=== PATIENT | female | born 1955 | race American Indian/Alaskan Native ===

== ENCOUNTER 2018-03-27 02:31 | Inpatient (IN) | payer MEDICARE ==
[2018-03-27] MEDS ORDERED: DUONEB *Not for PRN Use IH ONE (02:58)
[2018-03-27] MEDS ORDERED: TYLENOL PO ONE ×2 (02:59→04:35)
[2018-03-27] MEDS ORDERED: TYLENOL ONE (03:03)
[2018-03-27] MEDS ORDERED: PROVENTIL IH ONE ×3 (03:16→03:21)
[2018-03-27] MEDS ORDERED: MAGNESIUM SULFATE 2GM/50ML 2 GM/50 ML BAG IV ONE (03:21)
[2018-03-27] MEDS ORDERED: SOLU-Medrol IV ONE (03:21)
[2018-03-27 03:24] LABS: Basophils % (Auto) 0.4 % (0.0-1.8); Eosinophils # (Auto) 0.2 K/mm3 (0.0-0.4); Eosinophils % (Auto) 1.9 % (0.0-4.3); Hematocrit 38.3 % (30.3-42.9); Hemoglobin 12.8 gm/dl (10.1-14.3); Lymphocytes # (Auto) 0.8 K/mm3 (1.2-5.4); Lymphocytes % (Auto) 6.9 % (13.4-35.0); Mean Corpuscular HGB Conc 33 % (30-34); Mean Corpuscular Hemoglobin 27 pg (28-32); Mean Corpuscular Volume 80 fl (79-97); Monocytes # (Auto) 0.8 K/mm3 (0.0-0.8); Monocytes % (Auto) 6.9 % (0.0-7.3); Platelet Count 233 K/mm3 (140-440); Red Blood Count 4.77 M/mm3 (3.65-5.03); Red Cell Distribution Width 15.3 % (13.2-15.2)
[2018-03-27 03:34] LABS: BUN/Creatinine Ratio 11; Blood Urea Nitrogen 10 mg/dL (7-17); Calcium 8.9 mg/dL (8.4-10.2); Hemolysis Index 3
--- NOTE | 2018-03-27 04:17 | XRay Report ---
FINAL REPORT EXAM: XR CHEST 1V AP HISTORY: cough TECHNIQUE: A portable upright view of the chest was submitted. FINDINGS: There are sternotomy sutures. The heart size is normal. The lungs are not congested. There are no infiltrates or effusions. The bones and soft tissues do not show any acute changes. IMPRESSION: No acute cardiopulmonary process.
--- NOTE | 2018-03-27 04:32 | Emergency Department Report ---
ED Shortness of Breath HPI - General Chief Complaint: Adult Asthma Stated Complaint: ASTHMA Time Seen by Provider: 03/27/18 03:17 Source: patient Mode of arrival: Ambulatory Limitations: No Limitations - History of Present Illness Initial Comments: 63-year-old female with history of asthma presents to ER with complaints of shortness of breath. Patient states symptoms started within the last day. Patient reports cough, denies fever, denies chest pain. Denies swelling in legs. States she has been using nebulizer machine at home without improvement. MD Complaint: shortness of breath -: Gradual, days(s) (1) Severity: severe Consistency: constant Improves With: nothing Worsens With: exertion Known History Of: asthma Associated Symptoms: cough - Related Data Home Medications Medication Instructions Recorded Confirmed Last Taken Triamter/Hctz 37.5-25 mg 1 tab PO QDAY 07/09/13 05/04/15 08/08/13 [Maxzide-25] Dexlansoprazole [Dexilant] 60 mg PO DAILY 05/04/15 05/04/15 Unknown Loratadine [Claritin] 10 mg PO DAILY 05/04/15 05/04/15 Unknown Mometasone/Formoterol [Dulera 100 2 puff INHALATION BID 05/04/15 05/04/15 Unknown Mcg/5 Mcg Inhaler] NexIUM 24Hr 1 each PO DAILY 05/04/15 05/04/15 Unknown Tiotropium [Spiriva] 1 cap PO QHS 05/04/15 05/04/15 Unknown Previous Rx's Medication Instructions Recorded Last Taken Type ALBUTEROL Inhaler (OR & NICU) 1 puff IH QID PRN #1 inha 07/16/13 Unknown Rx [ProAir HFA Inhaler] Albuterol Sulfate [Albuterol 0.63% 0.63 mg IH TID PRN #1 box 07/16/13 08/08/13 Rx NEBS] Ipratropium [Atrovent NEB] 0.5 mg IH Q6HRT PRN #1 box 07/16/13 08/08/13 Rx Prednisone [predniSONE 10 mg 10 mg PO .TAPER #1 tab.ds.pk 05/06/15 Unknown Rx (6-Day Pack, 21 Tabs)] guaiFENesin DM [Robitussin Dm] 10 ml PO TID 14 Days oral.liqd 05/06/15 Unknown Rx levoFLOXacin [Levaquin TAB] 500 mg PO QDAY #7 tablet 05/06/15 Unknown Rx Allergies Allergy/AdvReac Type Severity Reaction Status Date / Time carisoprodol [From Soma] Allergy Rash Verified 06/12/13 13:40 Penicillins Allergy Rash Verified 06/12/13 13:40 ED Review of Systems ROS: Stated complaint: ASTHMA Other details as noted in HPI Comment: All other systems reviewed and negative Constitutional: denies: chills, fever Respiratory: cough, shortness of breath, wheezing Cardiovascular: denies: chest pain Gastrointestinal: denies: nausea, vomiting ED Past Medical Hx - Past Medical History Hx Hypertension: Yes Hx Congestive Heart Failure: No Hx Diabetes: No Hx Arthritis: Yes Hx Asthma: Yes Hx COPD: No - Surgical History Hx Breast Surgery: Yes (reduction) Additional Surgical History: Hysterectomy - Social History Smoking Status: Never Smoker Substance Use Type: None - Medications Home Medications: Home Medications Medication Instructions Recorded Confirmed Last Taken Type Triamter/Hctz 37.5-25 mg 1 tab PO QDAY 07/09/13 05/04/15 08/08/13 History [Maxzide-25] ALBUTEROL Inhaler (OR & NICU) 1 puff IH QID PRN #1 inha 07/16/13 05/04/15 Unknown Rx [ProAir HFA Inhaler] Albuterol Sulfate [Albuterol 0.63% 0.63 mg IH TID PRN #1 box 07/16/13 05/04/15 08/08/13 Rx NEBS] Ipratropium [Atrovent NEB] 0.5 mg IH Q6HRT PRN #1 box 07/16/13 05/04/15 Rx Dexlansoprazole [Dexilant] 60 mg PO DAILY 05/04/15 05/04/15 Unknown History Loratadine [Claritin] 10 mg PO DAILY 05/04/15 05/04/15 Unknown History Mometasone/Formoterol [Dulera 100 2 puff INHALATION BID 05/04/15 05/04/15 Unknown History Mcg/5 Mcg Inhaler] NexIUM 24Hr 1 each PO DAILY 05/04/15 05/04/15 Unknown History Tiotropium [Spiriva] 1 cap PO QHS 05/04/15 05/04/15 Unknown History Prednisone [predniSONE 10 mg 10 mg PO .TAPER #1 tab.ds.pk 05/06/15 Unknown Rx (6-Day Pack, 21 Tabs)] guaiFENesin DM [Robitussin Dm] 10 ml PO TID 14 Days oral.liqd 05/06/15 Unknown Rx levoFLOXacin [Levaquin TAB] 500 mg PO QDAY #7 tablet 05/06/15 Unknown Rx ED Physical Exam - General Limitations: No Limitations General appearance: alert, obese - Head Head exam: Present: atraumatic, normocephalic - Eye Eye exam: Present: normal appearance - ENT ENT exam: Present: mucous membranes moist - Neck Neck exam: Present: normal inspection - Respiratory Respiratory exam: Present: respiratory distress, wheezes, other (tachypnea) - Cardiovascular Cardiovascular Exam: Present: normal rhythm, tachycardia - GI/Abdominal GI/Abdominal exam: Present: soft. Absent: tenderness - Extremities Exam Extremities exam: Absent: tenderness, pedal edema - Neurological Exam Neurological exam: Present: alert, oriented X3 - Psychiatric Psychiatric exam: Present: normal affect, normal mood - Skin Skin exam: Present: warm, dry, intact, normal color ED Course Vital Signs 03/27/18 03/27/18 03/27/18 02:44 03:21 03:28 Temperature 100.9 F H Pulse Rate 109 H 106 H Pulse Rate [ 124 H Bilateral Throughout] Respiratory 28 H 32 H Rate Respiratory 15 Rate [Bilateral Throughout] Blood Pressure 152/90 O2 Sat by Pulse 100 98 Oximetry 03/27/18 03/27/18 03/27/18 03:31 03:45 04:00 Temperature 98.4 F Pulse Rate 121 H 124 H Pulse Rate [ Bilateral Throughout] Respiratory 40 H 47 H Rate Respiratory Rate [Bilateral Throughout] Blood Pressure 130/70 O2 Sat by Pulse 97 96 Oximetry 03/27/18 03/27/18 03/27/18 04:01 04:15 04:17 Temperature Pulse Rate 131 H 121 H Pulse Rate [ 124 H Bilateral Throughout] Respiratory 38 H 45 H 22 Rate Respiratory 37 H Rate [Bilateral Throughout] Blood Pressure 130/70 142/58 O2 Sat by Pulse 97 97 Oximetry 03/27/18 03/27/18 04:21 05:59 Temperature Pulse Rate 124 H 112 H Pulse Rate [ Bilateral Throughout] Respiratory 37 H 31 H Rate Respiratory Rate [Bilateral Throughout] Blood Pressure 142/58 138/59 O2 Sat by Pulse 99 97 Oximetry - Reevaluation(s) Reevaluation #1: 03/27/18 04:00 Pt remains tachycardic and tachypneic, w/ RR of 40. Pt still has wheezing present. Will place on Bipap. ED Medical Decision Making - Lab Data Result diagrams: 03/27/18 03:04 03/27/18 03:04 - EKG Data -: EKG Interpreted by Me EKG shows normal: ST-T waves Rate: tachycardia - EKG Data When compared to previous EKG there are: changes noted, other (as compared to last EKG from 2013, pt has RBBB) Interpretation: other (RBBB, LAFB, abnormal EKG) - Radiology Data Radiology results: report reviewed, image reviewed - Medical Decision Making 63-year-old female with severe respiratory distress secondary to asthma exacerbation. Patient initially given an treatment, mag sulfate, Solu-Medrol. Patient remained very tachypneic depsite those medications. Decision was made to plade pt on BiPAP. Pt now feeling much better, less anxious, respirations improved. CXR negative. Troponin negative. Will admit to hospitalist. Patient later reported chest tightness also with sharp pain and pleuritic component. Spoke with hospitalist Dr. Hannah, said to add CTA chest to workup. Hospitalist to follow up on results. - Differential Diagnosis ACS, asthma, pulm edema, PE Critical Care Time: Yes Critical care time in (mins) excluding proc time.: 35 Critical care attestation.: If time is entered above; I have spent that time in minutes in the direct care of this critically ill patient, excluding procedure time. Critical Care Time: 35 minutes. ED Disposition Clinical Impression: Status asthmaticus, Respiratory failure Disposition: [id number] OP ADMIT IP TO THIS HOSP Is pt being admited?: Yes Condition: Critical Referrals: OLGA CASTILLO JR, MD [Primary Care Provider] - 3-5 Days
[2018-03-27] MEDS ORDERED: SODIUM CHLORIDE FLUSH SYRINGE 10 ML IV PRN (06:08)
[2018-03-27] MEDS ORDERED: ZOFRAN IV PRN (06:08)
--- NOTE | 2018-03-27 06:17 | History and Physical Report ---
History of Present Illness Date of examination: 03/27/18 History of present illness: 63-year-old woman with a history of hypertension, asthma comes to consider emergency room with complaints of shortness of breath not relieved with her nebulizer treatments. Also complaining of a cough productive of white phlegm, fever. She complaints of chest pain in the epigastric area which she describes as sharp pain, intermittent after 1 minute, intensity 4/10, no radiation, cannot identify exacerbating or relieving factors. Admits to palpitation, no diaphoresis, nausea vomiting Review of systems Constitutional: no weight loss, chills, fever Ears, eyes, nose, mouth and throat: no nasal congestion, no nasal discharge, no sinus pressure, no vision change, no red eye. Neck: No neck pain or rigidity. Cardiovascular: + chest pain, palpitations Respiratory:+ cough, shortness of breath Gastrointestinal: no abdominal pain hematochezia Genitourinary : no frequency , no hematuria Musculoskeletal: no joint swelling or muscle ache Integumentary: no rash, no pruritis Neurological: no parathesias, no numbness, no focal weakness Endocrine: no cold or heat intolerance, no polyuria or polydipsia Hematologic/Lymphatic: no easy bruising, no easy bleeding, no gland swelling Allergic/Immunologic: no urticaria, no angioedema. PAST MEDICAL HISTORY: hypertension, asthma PAST SURGICAL HISTORY: Breast reduction, hysterectomy SOCIAL HISTORY: No alcohol, no drugs, tobacco FAMILY HISTORY: Hypertension Medications and Allergies Allergies Allergy/AdvReac Type Severity Reaction Status Date / Time carisoprodol [From Soma] Allergy Rash Verified 06/12/13 13:40 Penicillins Allergy Rash Verified 06/12/13 13:40 Home Medications Medication Instructions Recorded Confirmed Last Taken Type Triamter/Hctz 37.5-25 mg 1 tab PO QDAY 07/09/13 05/04/15 08/08/13 History [Maxzide-25] ALBUTEROL Inhaler (OR & NICU) 1 puff IH QID PRN #1 inha 07/16/13 05/04/15 Unknown Rx [ProAir HFA Inhaler] Albuterol Sulfate [Albuterol 0.63% 0.63 mg IH TID PRN #1 box 07/16/13 05/04/15 08/08/13 Rx NEBS] Ipratropium [Atrovent NEB] 0.5 mg IH Q6HRT PRN #1 box 07/16/13 05/04/15 Rx Dexlansoprazole [Dexilant] 60 mg PO DAILY 05/04/15 05/04/15 Unknown History Loratadine [Claritin] 10 mg PO DAILY 05/04/15 05/04/15 Unknown History Mometasone/Formoterol [Dulera 100 2 puff INHALATION BID 05/04/15 05/04/15 Unknown History Mcg/5 Mcg Inhaler] NexIUM 24Hr 1 each PO DAILY 05/04/15 05/04/15 Unknown History Tiotropium [Spiriva] 1 cap PO QHS 05/04/15 05/04/15 Unknown History Prednisone [predniSONE 10 mg 10 mg PO .TAPER #1 tab.ds.pk 05/06/15 Unknown Rx (6-Day Pack, 21 Tabs)] guaiFENesin DM [Robitussin Dm] 10 ml PO TID 14 Days oral.liqd 05/06/15 Unknown Rx levoFLOXacin [Levaquin TAB] 500 mg PO QDAY #7 tablet 05/06/15 Unknown Rx Exam - Physical Exam Narrative exam: Gen. appearance: Patient lying in bed, no apparent distress HEENT: Normocephalic, atraumatic, pupils equally round and reactive to light, extraocular movement intact, and no sclericterus,. No JVD or thyromegaly or nodule,neck supple, no carotid bruit ,mucous membranes moist, no exudate or erythema Heart: S1, S2, regular rate and rhythm Lungs: Recent bilaterally, breathing comfortable Abdomen: Positive bowel sounds, non-tender, nondistended, no organomegaly Extremity:no edema cyanosis, clubbing Skin: no rash, dry, warm Neuro: Oriented 3, cranial nerves II-12 intact, speech is fluent, motor and sensory intact - Constitutional Vitals: Temp Pulse Resp BP Pulse Ox 98.4 F 112 H 31 H 138/59 97 03/27/18 04:00 03/27/18 05:59 03/27/18 05:59 03/27/18 05:59 03/27/18 05:59 Results - Labs CBC & Chem 7: 03/27/18 03:04 03/27/18 03:04 Labs: Abnormal lab results 03/27/18 03/27/18 Range/Units 03:04 03:04 WBC 12.1 H (4.5-11.0) K/mm3 MCH 27 L (28-32) pg RDW 15.3 H (13.2-15.2) % Lymph % (Auto) 6.9 L (13.4-35.0) % Lymph # 0.8 L (1.2-5.4) K/mm3 Seg Neutrophils % 83.9 H (40.0-70.0) % Seg Neutrophils # 10.1 H (1.8-7.7) K/mm3 Glucose 157 H (65-100) mg/dL - Imaging and Cardiology EKG: image reviewed Chest x-ray: image reviewed Assessment and Plan Assessment Acute respiratory failure Asthma exacerbation Chest pain Plan Admit to medicine Continue BiPAP Start high-dose steroids, nebulization treatment, IV Levaquin Check cardiac enzymes, CT chest is pending DVT prophylaxis
[2018-03-27] MEDS: LEVAQUIN 500MG/100ML 500 MG/100 ML BAG IV SCH (06:54)
[2018-03-27 07:23] LABS: Creatine Kinase MB 1.1 ng/mL (0.0-4.0)
--- NOTE | 2018-03-27 07:41 | Cat Scan Report ---
FINAL REPORT EXAM: CT ANGIO CHEST HISTORY: chest pain TECHNIQUE: A CT angiogram was obtained following the intravenous injection of 100 cc of Omnipaque 350. Rotational, sagittal, and coronal MIP reconstructions were reviewed. Comparison is made to the study 08/09/2013. FINDINGS: There is no evidence of pulmonary embolus or aortic dissection. The heart size is normal. The thoracic aorta is normal in caliber. The lungs are not congested. There minimal dependent atelectasis in both lung bases. Pleural fluid is not seen. There is a small hiatal hernia. In the upper abdomen the adrenal glands appear normal. At the thoracic inlet there is been interval resection of the left thyroid mass since the previous study. The right thyroid lobe appears normal. Skeletal structures do not show any acute changes. IMPRESSION: No evidence of pulmonary embolus, vascular congestion, or aortic dissection. Minimal dependent atelectasis in both lower lobes. Interval surgical mobile of the left thyroid mass since the previous study.
[2018-03-27] MEDS ORDERED: SOLU-Medrol IV SCH (10:00)
[2018-03-27] MEDS ORDERED: LOVENOX SUB-Q SCH (10:00)
[2018-03-27] MEDS: DUONEB *Not for PRN Use IH SCH ×3 (11:05→20:16)
[2018-03-27] MEDS: LOVENOX SUB-Q SCH (12:13)
[2018-03-27] MEDS: SODIUM CHLORIDE FLUSH SYRINGE 10 ML IV SCH ×2 (12:14→21:46)
[2018-03-27 12:48] LABS: Creatine Kinase MB 1.6 ng/mL (0.0-4.0)
--- NOTE | 2018-03-27 12:48 | Progress Note ---
Assessment and Plan Assessment and plan: Sepsis. Patient meets criteria given the fever, leukocytosis and diagnosis of acute bronchitis. Continue IV antibiotics and follow-up blood, sputum cultures and lactate levels. Acute bronchitis. Continue IV antibiotics. Acute hypoxemic respiratory failure. Continue O2 support care. BiPAP as needed. Acute asthma exacerbation. Continue IV steroids, nebulizer treatments and IV Levaquin. History Interval history: No new issues overnight. Hospitalist Physical - Constitutional Vitals: Temp Pulse Resp BP Pulse Ox 97.8 F 96 H 20 133/68 95 03/27/18 08:57 03/27/18 11:20 03/27/18 11:20 03/27/18 08:57 03/27/18 08:57 General appearance: Present: no acute distress, well-nourished - EENT Eyes: Present: PERRL, EOM intact ENT: hearing intact, clear oral mucosa, dentition normal - Neck Neck: Present: supple, normal ROM - Respiratory Respiratory effort: normal Respiratory: bilateral: CTA - Cardiovascular Rhythm: regular Heart Sounds: Present: S1 & S2. Absent: gallop, rub - Extremities Extremities: no ischemia, No edema, Full ROM - Abdominal General gastrointestinal: soft, non-tender, non-distended, normal bowel sounds - Integumentary Integumentary: Present: clear, warm, dry - Neurologic Neurologic: CNII-XII intact, moves all extremities Results - Labs CBC & Chem 7: 03/27/18 03:04 03/27/18 03:04 Labs: Laboratory Last Values WBC 12.1 K/mm3 (4.5-11.0) H 03/27/18 03:04 RBC 4.77 M/mm3 (3.65-5.03) 03/27/18 03:04 Hgb 12.8 gm/dl (10.1-14.3) 03/27/18 03:04 Hct 38.3 % (30.3-42.9) 03/27/18 03:04 MCV 80 fl (79-97) 03/27/18 03:04 MCH 27 pg (28-32) L 03/27/18 03:04 MCHC 33 % (30-34) 03/27/18 03:04 RDW 15.3 % (13.2-15.2) H 03/27/18 03:04 Plt Count 233 K/mm3 (140-440) 03/27/18 03:04 Lymph % (Auto) 6.9 % (13.4-35.0) L 03/27/18 03:04 [place] % (Auto) 6.9 % (0.0-7.3) 03/27/18 03:04 Eos % (Auto) 1.9 % (0.0-4.3) 03/27/18 03:04 Baso % (Auto) 0.4 % (0.0-1.8) 03/27/18 03:04 Lymph # 0.8 K/mm3 (1.2-5.4) L 03/27/18 03:04 [place] # 0.8 K/mm3 (0.0-0.8) 03/27/18 03:04 Eos # 0.2 K/mm3 (0.0-0.4) 03/27/18 03:04 Baso # 0.0 K/mm3 (0.0-0.1) 03/27/18 03:04 Seg Neutrophils % 83.9 % (40.0-70.0) H 03/27/18 03:04 Seg Neutrophils # 10.1 K/mm3 (1.8-7.7) H 03/27/18 03:04 POC ABG pH 7.403 (7.35-7.45) 03/27/18 06:14 POC ABG pCO2 38.9 (35-45) 03/27/18 06:14 POC ABG pO2 84 (80-105) 03/27/18 06:14 POC ABG HCO3 24.3 03/27/18 06:14 POC ABG Total CO2 25 03/27/18 06:14 POC ABG O2 Sat 96 03/27/18 06:14 POC ABG Base Excess 0 03/27/18 06:14 FiO2 30 % 03/27/18 06:14 Sodium 140 mmol/L (137-145) 03/27/18 03:04 Potassium 4.1 mmol/L (3.6-5.0) 03/27/18 03:04 Chloride 100.5 mmol/L (98-107) 03/27/18 03:04 Carbon Dioxide 26 mmol/L (22-30) 03/27/18 03:04 Anion Gap 18 mmol/L 03/27/18 03:04 BUN 10 mg/dL (7-17) 03/27/18 03:04 Creatinine 0.9 mg/dL (0.7-1.2) 03/27/18 03:04 Estimated GFR > 60 ml/min 03/27/18 03:04 BUN/Creatinine Ratio 11 % 03/27/18 03:04 Glucose 157 mg/dL (65-100) H 03/27/18 03:04 Calcium 8.9 mg/dL (8.4-10.2) 03/27/18 03:04 Total Creatine Kinase 72 units/L (30-135) 03/27/18 06:45 CK-MB (CK-2) 1.1 ng/mL (0.0-4.0) 03/27/18 06:45 CK-MB (CK-2) Rel Index 1.5 (0-4) 03/27/18 06:45 Troponin T < 0.010 ng/mL (0.00-0.029) 03/27/18 06:45 NT-Pro-B Natriuret Pep 97.77 pg/mL (0-900) 03/27/18 03:04
[2018-03-27] MEDS: NAPROSYN PO SCH ×2 (16:40→21:44)
[2018-03-27] MEDS: SOLU-Medrol IV SCH ×2 (17:14→21:45)
[2018-03-27] MEDS: PROTONIX PO SCH (21:45)
[2018-03-28] MEDS: DUONEB *Not for PRN Use IH SCH ×4 (01:59→21:46)
[2018-03-28 05:40] LABS: Hematocrit 37.9 % (30.3-42.9); Hemoglobin 12.2 gm/dl (10.1-14.3); Mean Corpuscular HGB Conc 32 % (30-34); Mean Corpuscular Hemoglobin 26 pg (28-32); Mean Corpuscular Volume 81 fl (79-97); Platelet Count 242 K/mm3 (140-440); Red Blood Count 4.66 M/mm3 (3.65-5.03); Red Cell Distribution Width 15.2 % (13.2-15.2)
[2018-03-28 05:57] LABS: BUN/Creatinine Ratio 13; Blood Urea Nitrogen 13 mg/dL (7-17); Hemolysis Index 21
[2018-03-28 06:56] LABS: Band Neutrophils # (Manual) 0.2 K/mm3; Basophils % (Manual) 0 % (0.0-1.8); Eosinophils % (Manual) 0 % (0.0-4.3); Monocytes % (Manual) 0 % (0.0-7.3); RBC Morphology Normal; Total Cells Counted 100
[2018-03-28] MEDS: TYLENOL PO PRN ×2 (07:02→12:40)
[2018-03-28] MEDS: SOLU-Medrol IV SCH ×3 (07:03→22:55)
[2018-03-28] MEDS: SODIUM CHLORIDE FLUSH SYRINGE 10 ML IV SCH ×2 (10:00→22:55)
--- NOTE | 2018-03-28 10:26 | Progress Note ---
Assessment and Plan Assessment and plan: Sepsis. Patient meets criteria given the fever, leukocytosis and diagnosis of acute bronchitis. Continue IV antibiotics and follow-up blood, sputum cultures and lactate levels. Acute bronchitis. Continue IV antibiotics. Acute hypoxemic respiratory failure. Continue O2 support care. BiPAP as needed. Acute asthma exacerbation. Continue IV steroids and taper as tolerated, nebulizer treatments and IV Levaquin. History Interval history: No new issues overnight. Hospitalist Physical - Constitutional Vitals: Temp Pulse Resp BP Pulse Ox 98.4 F 81 20 128/76 96 03/28/18 08:42 03/28/18 08:42 03/28/18 08:42 03/28/18 08:42 03/28/18 08:42 General appearance: Present: no acute distress, well-nourished - EENT Eyes: Present: PERRL, EOM intact ENT: hearing intact, clear oral mucosa, dentition normal - Neck Neck: Present: supple, normal ROM - Respiratory Respiratory effort: normal Respiratory: bilateral: diminished, wheezing - Cardiovascular Rhythm: regular Heart Sounds: Present: S1 & S2. Absent: gallop, rub - Extremities Extremities: no ischemia, No edema, Full ROM - Abdominal General gastrointestinal: soft, non-tender, non-distended, normal bowel sounds - Integumentary Integumentary: Present: clear, warm, dry - Neurologic Neurologic: CNII-XII intact, moves all extremities Results - Labs CBC & Chem 7: 03/28/18 05:04 03/28/18 05:04 Labs: Laboratory Last Values WBC 19.0 K/mm3 (4.5-11.0) H 03/28/18 05:04 RBC 4.66 M/mm3 (3.65-5.03) 03/28/18 05:04 Hgb 12.2 gm/dl (10.1-14.3) 03/28/18 05:04 Hct 37.9 % (30.3-42.9) 03/28/18 05:04 MCV 81 fl (79-97) 03/28/18 05:04 MCH 26 pg (28-32) L 03/28/18 05:04 MCHC 32 % (30-34) 03/28/18 05:04 RDW 15.2 % (13.2-15.2) 03/28/18 05:04 Plt Count 242 K/mm3 (140-440) 03/28/18 05:04 Lymph % (Auto) 6.9 % (13.4-35.0) L 03/27/18 03:04 [place] % (Auto) 6.9 % (0.0-7.3) 03/27/18 03:04 Eos % (Auto) 1.9 % (0.0-4.3) 03/27/18 03:04 Baso % (Auto) 0.4 % (0.0-1.8) 03/27/18 03:04 Lymph # 0.8 K/mm3 (1.2-5.4) L 03/27/18 03:04 [place] # 0.8 K/mm3 (0.0-0.8) 03/27/18 03:04 Eos # 0.2 K/mm3 (0.0-0.4) 03/27/18 03:04 Baso # 0.0 K/mm3 (0.0-0.1) 03/27/18 03:04 Add Manual Diff Complete 03/28/18 05:04 Total Counted 100 03/28/18 05:04 Seg Neutrophils % [facility] 03/28/18 05:04 Seg Neuts % (Manual) 96.0 % (40.0-70.0) H 03/28/18 05:04 Band Neutrophils % 1.0 % 03/28/18 05:04 Lymphocytes % (Manual) 2.0 % (13.4-35.0) L 03/28/18 05:04 Reactive Lymphs % (Man) 0 % 03/28/18 05:04 Monocytes % (Manual) 0 % (0.0-7.3) 03/28/18 05:04 Eosinophils % (Manual) 0 % (0.0-4.3) 03/28/18 05:04 Basophils % (Manual) 0 % (0.0-1.8) 03/28/18 05:04 Metamyelocytes % 1.0 % 03/28/18 05:04 Myelocytes % 0 % 03/28/18 05:04 Promyelocytes % 0 % 03/28/18 05:04 Blast Cells % 0 % 03/28/18 05:04 Nucleated RBC % Not Reportable 03/28/18 05:04 Seg Neutrophils # 10.1 K/mm3 (1.8-7.7) H 03/27/18 03:04 Seg Neutrophils # Man 18.2 K/mm3 (1.8-7.7) H 03/28/18 05:04 Band Neutrophils # 0.2 K/mm3 03/28/18 05:04 Lymphocytes # (Manual) 0.4 K/mm3 (1.2-5.4) L 03/28/18 05:04 Abs React Lymphs (Man) 0.0 K/mm3 03/28/18 05:04 Monocytes # (Manual) 0.0 K/mm3 (0.0-0.8) 03/28/18 05:04 Eosinophils # (Manual) 0.0 K/mm3 (0.0-0.4) 03/28/18 05:04 Basophils # (Manual) 0.0 K/mm3 (0.0-0.1) 03/28/18 05:04 Metamyelocytes # 0.2 K/mm3 03/28/18 05:04 Myelocytes # 0.0 K/mm3 03/28/18 05:04 Promyelocytes # 0.0 K/mm3 03/28/18 05:04 Blast Cells # 0.0 K/mm3 03/28/18 05:04 WBC Morphology Not Reportable 03/28/18 05:04 Hypersegmented Neuts Not Reportable 03/28/18 05:04 Hyposegmented Neuts Not Reportable 03/28/18 05:04 Hypogranular Neuts Not Reportable 03/28/18 05:04 Smudge Cells Not Reportable 03/28/18 05:04 Toxic Granulation Not Reportable 03/28/18 05:04 Toxic Vacuolation Not Reportable 03/28/18 05:04 Dohle Bodies Not Reportable 03/28/18 05:04 Pelger-Huet Anomaly Not Reportable 03/28/18 05:04 Toni Rods Not Reportable 03/28/18 05:04 Platelet Estimate Appears normal 03/28/18 05:04 Clumped Platelets Not Reportable 03/28/18 05:04 Plt Clumps, EDTA Not Reportable 03/28/18 05:04 Large Platelets Not Reportable 03/28/18 05:04 Giant Platelets Not Reportable 03/28/18 05:04 Platelet Satelliting Not Reportable 03/28/18 05:04 Plt Morphology Comment Not Reportable 03/28/18 05:04 RBC Morphology Normal 03/28/18 05:04 Dimorphic RBCs Not Reportable 03/28/18 05:04 Polychromasia Not Reportable 03/28/18 05:04 Hypochromasia Not Reportable 03/28/18 05:04 Poikilocytosis Not Reportable 03/28/18 05:04 Anisocytosis Not Reportable 03/28/18 05:04 Microcytosis Not Reportable 03/28/18 05:04 Macrocytosis Not Reportable 03/28/18 05:04 Spherocytes Not Reportable 03/28/18 05:04 Pappenheimer Bodies Not Reportable 03/28/18 05:04 Sickle Cells Not Reportable 03/28/18 05:04 Target Cells Not Reportable 03/28/18 05:04 Tear Drop Cells Not Reportable 03/28/18 05:04 Ovalocytes Not Reportable 03/28/18 05:04 Helmet Cells Not Reportable 03/28/18 05:04 [place] Bodies Not Reportable 03/28/18 05:04 [place] Rings Not Reportable 03/28/18 05:04 [place] Cells Not Reportable 03/28/18 05:04 Bite Cells Not Reportable 03/28/18 05:04 Crenated Cell Not Reportable 03/28/18 05:04 Elliptocytes Not Reportable 03/28/18 05:04 Acanthocytes (Spur) Not Reportable 03/28/18 05:04 Rouleaux Not Reportable 03/28/18 05:04 Hemoglobin C Crystals Not Reportable 03/28/18 05:04 Schistocytes Not Reportable 03/28/18 05:04 Malaria parasites Not Reportable 03/28/18 05:04 [place]hsan Bodies Not Reportable 03/28/18 05:04 Hem Pathologist Commnt No 03/28/18 05:04 POC ABG pH 7.403 (7.35-7.45) 03/27/18 06:14 POC ABG pCO2 38.9 (35-45) 03/27/18 06:14 POC ABG pO2 84 (80-105) 03/27/18 06:14 POC ABG HCO3 24.3 03/27/18 06:14 POC ABG Total CO2 25 03/27/18 06:14 POC ABG O2 Sat 96 03/27/18 06:14 POC ABG Base Excess 0 03/27/18 06:14 FiO2 30 % 03/27/18 06:14 Sodium 142 mmol/L (137-145) 03/28/18 05:04 Potassium 4.5 mmol/L (3.6-5.0) 03/28/18 05:04 Chloride 104.7 mmol/L (98-107) 03/28/18 05:04 Carbon Dioxide 25 mmol/L (22-30) 03/28/18 05:04 Anion Gap 17 mmol/L 03/28/18 05:04 BUN 13 mg/dL (7-17) 03/28/18 05:04 Creatinine 1.0 mg/dL (0.7-1.2) 03/28/18 05:04 Estimated GFR > 60 ml/min 03/28/18 05:04 BUN/Creatinine Ratio 13 % 03/28/18 05:04 Glucose 245 mg/dL (65-100) H 03/28/18 05:04 Calcium 9.0 mg/dL (8.4-10.2) 03/28/18 05:04 Total Creatine Kinase 63 units/L (30-135) 03/27/18 12:20 CK-MB (CK-2) 1.6 ng/mL (0.0-4.0) 03/27/18 12:20 CK-MB (CK-2) Rel Index 2.5 (0-4) 03/27/18 12:20 Troponin T < 0.010 ng/mL (0.00-0.029) 03/27/18 12:20 NT-Pro-B Natriuret Pep 97.77 pg/mL (0-900) 03/27/18 03:04
[2018-03-28] MEDS: LOVENOX SUB-Q SCH (10:39)
[2018-03-28] MEDS: PROTONIX PO SCH (10:39)
[2018-03-28] MEDS: NAPROSYN PO SCH ×2 (10:39→23:05)
[2018-03-28] MEDS: LEVAQUIN 500MG/100ML 500 MG/100 ML BAG IV SCH (10:40)
[2018-03-28] MEDS: COZAAR PO SCH (23:37)
[2018-03-28] MEDS: TESSALON PERLES PO PRN (23:38)
[2018-03-29] MEDS: DUONEB *Not for PRN Use IH SCH ×4 (02:24→19:42)
[2018-03-29] MEDS: SOLU-Medrol IV SCH ×3 (05:50→21:17)
[2018-03-29 06:30] LABS: Hematocrit 35.4 % (30.3-42.9); Hemoglobin 11.5 gm/dl (10.1-14.3); Mean Corpuscular HGB Conc 33 % (30-34); Mean Corpuscular Hemoglobin 26 pg (28-32); Mean Corpuscular Volume 81 fl (79-97); Platelet Count 247 K/mm3 (140-440); Red Cell Distribution Width 15.3 % (13.2-15.2)
[2018-03-29 06:50] LABS: BUN/Creatinine Ratio 19; Blood Urea Nitrogen 21 mg/dL (7-17); Calcium 8.5 mg/dL (8.4-10.2); Hemolysis Index 2
[2018-03-29] MEDS: MAXZIDE-25 PO SCH (09:10)
[2018-03-29] MEDS: COZAAR PO SCH (09:10)
[2018-03-29] MEDS: TYLENOL PO PRN ×2 (09:11→21:17)
[2018-03-29] MEDS: NAPROSYN PO SCH ×2 (09:11→21:16)
[2018-03-29] MEDS: LOVENOX SUB-Q SCH (09:12)
[2018-03-29] MEDS: PROTONIX PO SCH (09:12)
[2018-03-29] MEDS: TESSALON PERLES PO PRN (09:12)
[2018-03-29] MEDS: LEVAQUIN 500MG/100ML 500 MG/100 ML BAG IV SCH (09:13)
[2018-03-29] MEDS: SODIUM CHLORIDE FLUSH SYRINGE 10 ML IV SCH ×2 (10:00→21:16)
[2018-03-29 10:32] LABS: Total Cells Counted 100
[2018-03-29 10:34] LABS: Anisocytosis 1+; Basophils % (Manual) 0 % (0.0-1.8); Eosinophils % (Manual) 0 % (0.0-4.3)
[2018-03-29 10:35] LABS: Poikilocytosis 1+; Schistocytes Rare
[2018-03-29] MEDS ORDERED: SODIUM CHLORIDE FLUSH SYRINGE 10 ML IV PRN (11:51)
--- NOTE | 2018-03-29 11:51 | Progress Note ---
Assessment and Plan Assessment and plan: Chest pain. Patient will be placed on the chest pain protocol. We will follow up lexiscan and echocardiogram. Consider cardiology consultation. Sepsis. Improved. Continue IV antibiotics and follow-up blood, sputum cultures and lactate levels. Acute bronchitis. Continue IV antibiotics. Persistent Leukocytosis. Etiology likely secondary to steroids. Acute hypoxemic respiratory failure. Continue O2 support care. BiPAP as needed. Acute asthma exacerbation. Continue IV steroids and taper as tolerated, nebulizer treatments and IV Levaquin. History Interval history: No new issues overnight. Patient complains of chest pain that began this morning. Patient describes the pain as a tightness in the midsternal region. Hospitalist Physical - Constitutional Vitals: Temp Pulse Resp BP Pulse Ox 97.9 F 71 18 131/76 97 03/29/18 08:11 03/29/18 10:09 03/29/18 10:09 03/29/18 08:11 03/29/18 10:00 General appearance: Present: no acute distress, well-nourished - EENT Eyes: Present: PERRL, EOM intact ENT: hearing intact, clear oral mucosa, dentition normal - Neck Neck: Present: supple, normal ROM - Respiratory Respiratory effort: normal Respiratory: bilateral: diminished, rhonchi - Cardiovascular Rhythm: regular Heart Sounds: Present: S1 & S2. Absent: gallop, rub - Extremities Extremities: no ischemia, No edema, Full ROM - Abdominal General gastrointestinal: soft, non-tender, non-distended, normal bowel sounds - Integumentary Integumentary: Present: clear, warm, dry - Neurologic Neurologic: CNII-XII intact, moves all extremities Results - Labs CBC & Chem 7: 03/29/18 05:58 03/29/18 05:58 Labs: Laboratory Last Values WBC 19.3 K/mm3 (4.5-11.0) H 03/29/18 05:58 RBC 4.40 M/mm3 (3.65-5.03) 03/29/18 05:58 Hgb 11.5 gm/dl (10.1-14.3) 03/29/18 05:58 Hct 35.4 % (30.3-42.9) 03/29/18 05:58 MCV 81 fl (79-97) 03/29/18 05:58 MCH 26 pg (28-32) L 03/29/18 05:58 MCHC 33 % (30-34) 03/29/18 05:58 RDW 15.3 % (13.2-15.2) H 03/29/18 05:58 Plt Count 247 K/mm3 (140-440) 03/29/18 05:58 Lymph % (Auto) 6.9 % (13.4-35.0) L 03/27/18 03:04 [place] % (Auto) 6.9 % (0.0-7.3) 03/27/18 03:04 Eos % (Auto) 1.9 % (0.0-4.3) 03/27/18 03:04 Baso % (Auto) 0.4 % (0.0-1.8) 03/27/18 03:04 Lymph # 0.8 K/mm3 (1.2-5.4) L 03/27/18 03:04 [place] # 0.8 K/mm3 (0.0-0.8) 03/27/18 03:04 Eos # 0.2 K/mm3 (0.0-0.4) 03/27/18 03:04 Baso # 0.0 K/mm3 (0.0-0.1) 03/27/18 03:04 Add Manual Diff Complete 03/29/18 05:58 Total Counted 100 03/29/18 05:58 Seg Neutrophils % Child Psychologist 03/29/18 05:58 Seg Neuts % (Manual) 98.0 % (40.0-70.0) H 03/29/18 05:58 Band Neutrophils % 0 % 03/29/18 05:58 Lymphocytes % (Manual) 1.0 % (13.4-35.0) L 03/29/18 05:58 Reactive Lymphs % (Man) 0 % 03/29/18 05:58 Monocytes % (Manual) 1.0 % (0.0-7.3) 03/29/18 05:58 Eosinophils % (Manual) 0 % (0.0-4.3) 03/29/18 05:58 Basophils % (Manual) 0 % (0.0-1.8) 03/29/18 05:58 Metamyelocytes % 0 % 03/29/18 05:58 Myelocytes % 0 % 03/29/18 05:58 Promyelocytes % 0 % 03/29/18 05:58 Blast Cells % 0 % 03/29/18 05:58 Nucleated RBC % Not Reportable 03/29/18 05:58 Seg Neutrophils # 10.1 K/mm3 (1.8-7.7) H 03/27/18 03:04 Seg Neutrophils # Man 18.9 K/mm3 (1.8-7.7) H 03/29/18 05:58 Band Neutrophils # 0.0 K/mm3 03/29/18 05:58 Lymphocytes # (Manual) 0.2 K/mm3 (1.2-5.4) L 03/29/18 05:58 Abs React Lymphs (Man) 0.0 K/mm3 03/29/18 05:58 Monocytes # (Manual) 0.2 K/mm3 (0.0-0.8) 03/29/18 05:58 Eosinophils # (Manual) 0.0 K/mm3 (0.0-0.4) 03/29/18 05:58 Basophils # (Manual) 0.0 K/mm3 (0.0-0.1) 03/29/18 05:58 Metamyelocytes # 0.0 K/mm3 03/29/18 05:58 Myelocytes # 0.0 K/mm3 03/29/18 05:58 Promyelocytes # 0.0 K/mm3 03/29/18 05:58 Blast Cells # 0.0 K/mm3 03/29/18 05:58 WBC Morphology Not Reportable 03/29/18 05:58 Hypersegmented Neuts Not Reportable 03/29/18 05:58 Hyposegmented Neuts Not Reportable 03/29/18 05:58 Hypogranular Neuts Not Reportable 03/29/18 05:58 Smudge Cells Not Reportable 03/29/18 05:58 Toxic Granulation Not Reportable 03/29/18 05:58 Toxic Vacuolation Not Reportable 03/29/18 05:58 Dohle Bodies Not Reportable 03/29/18 05:58 Pelger-Huet Anomaly Not Reportable 03/29/18 05:58 Toni Rods Not Reportable 03/29/18 05:58 Platelet Estimate Appears normal 03/29/18 05:58 Clumped Platelets Not Reportable 03/29/18 05:58 Plt Clumps, EDTA Not Reportable 03/29/18 05:58 Large Platelets Not Reportable 03/29/18 05:58 Giant Platelets Not Reportable 03/29/18 05:58 Platelet Satelliting Not Reportable 03/29/18 05:58 Plt Morphology Comment Not Reportable 03/29/18 05:58 RBC Morphology Not Reportable 03/29/18 05:58 Dimorphic RBCs Not Reportable 03/29/18 05:58 Polychromasia Not Reportable 03/29/18 05:58 Hypochromasia Not Reportable 03/29/18 05:58 Poikilocytosis 1+ 03/29/18 05:58 Anisocytosis 1+ 03/29/18 05:58 Microcytosis Not Reportable 03/29/18 05:58 Macrocytosis Not Reportable 03/29/18 05:58 Spherocytes Not Reportable 03/29/18 05:58 Pappenheimer Bodies Not Reportable 03/29/18 05:58 Sickle Cells Not Reportable 03/29/18 05:58 Target Cells Not Reportable 03/29/18 05:58 Tear Drop Cells Not Reportable 03/29/18 05:58 Ovalocytes Not Reportable 03/29/18 05:58 Helmet Cells Not Reportable 03/29/18 05:58 [place] Bodies Not Reportable 03/29/18 05:58 [place] Rings Not Reportable 03/29/18 05:58 [place] Cells Not Reportable 03/29/18 05:58 Bite Cells Not Reportable 03/29/18 05:58 Crenated Cell Not Reportable 03/29/18 05:58 Elliptocytes Not Reportable 03/29/18 05:58 Acanthocytes (Spur) Not Reportable 03/29/18 05:58 Rouleaux Not Reportable 03/29/18 05:58 Hemoglobin C Crystals Not Reportable 03/29/18 05:58 Schistocytes Rare 03/29/18 05:58 Malaria parasites Not Reportable 03/29/18 05:58 Ihsan Bodies Not Reportable 03/29/18 05:58 Hem Pathologist Commnt No 03/29/18 05:58 POC ABG pH 7.403 (7.35-7.45) 03/27/18 06:14 POC ABG pCO2 38.9 (35-45) 03/27/18 06:14 POC ABG pO2 84 (80-105) 03/27/18 06:14 POC ABG HCO3 24.3 03/27/18 06:14 POC ABG Total CO2 25 03/27/18 06:14 POC ABG O2 Sat 96 03/27/18 06:14 POC ABG Base Excess 0 03/27/18 06:14 FiO2 30 % 03/27/18 06:14 Sodium 141 mmol/L (137-145) 03/29/18 05:58 Potassium 4.3 mmol/L (3.6-5.0) 03/29/18 05:58 Chloride 104.3 mmol/L (98-107) 03/29/18 05:58 Carbon Dioxide 24 mmol/L (22-30) 03/29/18 05:58 Anion Gap 17 mmol/L 03/29/18 05:58 BUN 21 mg/dL (7-17) H 03/29/18 05:58 Creatinine 1.1 mg/dL (0.7-1.2) 03/29/18 05:58 Estimated GFR > 60 ml/min 03/29/18 05:58 BUN/Creatinine Ratio 19 % 03/29/18 05:58 Glucose 215 mg/dL (65-100) H 03/29/18 05:58 Calcium 8.5 mg/dL (8.4-10.2) 03/29/18 05:58 Total Creatine Kinase 63 units/L (30-135) 03/27/18 12:20 CK-MB (CK-2) 1.6 ng/mL (0.0-4.0) 03/27/18 12:20 CK-MB (CK-2) Rel Index 2.5 (0-4) 03/27/18 12:20 Troponin T < 0.010 ng/mL (0.00-0.029) 03/27/18 12:20 NT-Pro-B Natriuret Pep 97.77 pg/mL (0-900) 03/27/18 03:04
[2018-03-29 13:16] LABS: Hematocrit 38.7 % (30.3-42.9); Hemoglobin 12.5 gm/dl (10.1-14.3); Mean Corpuscular HGB Conc 32 % (30-34); Mean Corpuscular Hemoglobin 26 pg (28-32); Mean Corpuscular Volume 81 fl (79-97); Platelet Count 283 K/mm3 (140-440); Red Blood Count 4.77 M/mm3 (3.65-5.03); Red Cell Distribution Width 15.5 % (13.2-15.2)
[2018-03-29 13:43] LABS: BUN/Creatinine Ratio 19; Blood Urea Nitrogen 21 mg/dL (7-17); Calcium 8.8 mg/dL (8.4-10.2); Hemolysis Index 3
[2018-03-29 14:01] LABS: Basophils % (Manual) 0 % (0.0-1.8); Eosinophils % (Manual) 0 % (0.0-4.3); Total Cells Counted 100
[2018-03-29 14:03] LABS: Anisocytosis 1+; Schistocytes Rare; Target Cells Rare
[2018-03-30] MEDS: DUONEB *Not for PRN Use IH SCH ×4 (02:23→19:08)
[2018-03-30] MEDS: SOLU-Medrol IV SCH ×2 (05:15→21:00)
[2018-03-30] MEDS: TYLENOL PO PRN ×2 (05:27→20:56)
[2018-03-30 07:41] LABS: Hematocrit 38.6 % (30.3-42.9); Hemoglobin 12.5 gm/dl (10.1-14.3); Mean Corpuscular HGB Conc 32 % (30-34); Mean Corpuscular Hemoglobin 26 pg (28-32); Mean Corpuscular Volume 82 fl (79-97); Platelet Count 270 K/mm3 (140-440); Red Blood Count 4.74 M/mm3 (3.65-5.03); Red Cell Distribution Width 15.2 % (13.2-15.2)
[2018-03-30] MEDS ORDERED: LEXISCAN IV ONE ×2 (08:14→08:17)
[2018-03-30 08:46] LABS: Basophils % (Manual) 0 % (0.0-1.8); Eosinophils % (Manual) 0 % (0.0-4.3); Total Cells Counted 100
[2018-03-30 08:47] LABS: Anisocytosis 1+
[2018-03-30 08:48] LABS: Poikilocytosis Few; Schistocytes Rare
[2018-03-30] MEDS: NAPROSYN PO SCH ×2 (11:00→21:00)
[2018-03-30] MEDS: COZAAR PO SCH (11:01)
[2018-03-30] MEDS: MAXZIDE-25 PO SCH (11:01)
[2018-03-30] MEDS: PROTONIX PO SCH (11:01)
[2018-03-30] MEDS: LOVENOX SUB-Q SCH (11:02)
[2018-03-30] MEDS: LEVAQUIN 500MG/100ML 500 MG/100 ML BAG IV SCH (11:02)
[2018-03-30] MEDS: BABY ASPIRIN PO SCH (11:02)
--- NOTE | 2018-03-30 11:23 | Progress Note ---
Assessment and Plan Assessment and plan: Chest pain. Cont. chest pain protocol. Trop negative. We will follow up lexiscan and echocardiogram. Consider cardiology consultation. Sepsis. Improved. Continue IV antibiotics and follow-up blood, sputum cultures and lactate levels. Acute bronchitis. Continue IV antibiotics. Persistent Leukocytosis. Etiology likely secondary to steroids. Acute hypoxemic respiratory failure. Continue O2 support care. BiPAP as needed. Acute asthma exacerbation. Continue IV steroids and taper as tolerated, nebulizer treatments and IV Levaquin. History Interval history: No new issues overnight. Hospitalist Physical - Constitutional Vitals: Temp Pulse Resp BP Pulse Ox 98.5 F 87 26 H 151/79 96 03/30/18 06:13 03/30/18 08:40 03/30/18 11:00 03/30/18 08:40 03/30/18 06:13 General appearance: Present: no acute distress, well-nourished - EENT Eyes: Present: PERRL, EOM intact ENT: hearing intact, clear oral mucosa, dentition normal - Neck Neck: Present: supple, normal ROM - Respiratory Respiratory effort: normal Respiratory: bilateral: CTA - Cardiovascular Rhythm: regular Heart Sounds: Present: S1 & S2. Absent: gallop, rub - Extremities Extremities: no ischemia, No edema, Full ROM - Abdominal General gastrointestinal: soft, non-tender, non-distended, normal bowel sounds - Integumentary Integumentary: Present: clear, warm, dry - Neurologic Neurologic: CNII-XII intact, moves all extremities Results - Labs CBC & Chem 7: 03/30/18 07:07 03/30/18 07:07 Labs: Laboratory Last Values WBC 16.1 K/mm3 (4.5-11.0) H 03/30/18 07:07 RBC 4.74 M/mm3 (3.65-5.03) 03/30/18 07:07 Hgb 12.5 gm/dl (10.1-14.3) 03/30/18 07:07 Hct 38.6 % (30.3-42.9) 03/30/18 07:07 MCV 82 fl (79-97) 03/30/18 07:07 MCH 26 pg (28-32) L 03/30/18 07:07 MCHC 32 % (30-34) 03/30/18 07:07 RDW 15.2 % (13.2-15.2) 03/30/18 07:07 Plt Count 270 K/mm3 (140-440) 03/30/18 07:07 Lymph % (Auto) 6.9 % (13.4-35.0) L 03/27/18 03:04 [place] % (Auto) 6.9 % (0.0-7.3) 03/27/18 03:04 Eos % (Auto) 1.9 % (0.0-4.3) 03/27/18 03:04 Baso % (Auto) 0.4 % (0.0-1.8) 03/27/18 03:04 Lymph # 0.8 K/mm3 (1.2-5.4) L 03/27/18 03:04 [place] # 0.8 K/mm3 (0.0-0.8) 03/27/18 03:04 Eos # 0.2 K/mm3 (0.0-0.4) 03/27/18 03:04 Baso # 0.0 K/mm3 (0.0-0.1) 03/27/18 03:04 Add Manual Diff Complete 03/30/18 07:07 Total Counted 100 03/30/18 07:07 Seg Neutrophils % Supplier Engineer 03/30/18 07:07 Seg Neuts % (Manual) 95.0 % (40.0-70.0) H 03/30/18 07:07 Band Neutrophils % 0 % 03/30/18 07:07 Lymphocytes % (Manual) 3.0 % (13.4-35.0) L 03/30/18 07:07 Reactive Lymphs % (Man) 0 % 03/30/18 07:07 Monocytes % (Manual) 2.0 % (0.0-7.3) 03/30/18 07:07 Eosinophils % (Manual) 0 % (0.0-4.3) 03/30/18 07:07 Basophils % (Manual) 0 % (0.0-1.8) 03/30/18 07:07 Metamyelocytes % 0 % 03/30/18 07:07 Myelocytes % 0 % 03/30/18 07:07 Promyelocytes % 0 % 03/30/18 07:07 Blast Cells % 0 % 03/30/18 07:07 Nucleated RBC % Not Reportable 03/30/18 07:07 Seg Neutrophils # 10.1 K/mm3 (1.8-7.7) H 03/27/18 03:04 Seg Neutrophils # Man 15.3 K/mm3 (1.8-7.7) H 03/30/18 07:07 Band Neutrophils # 0.0 K/mm3 03/30/18 07:07 Lymphocytes # (Manual) 0.5 K/mm3 (1.2-5.4) L 03/30/18 07:07 Abs React Lymphs (Man) 0.0 K/mm3 03/30/18 07:07 Monocytes # (Manual) 0.3 K/mm3 (0.0-0.8) 03/30/18 07:07 Eosinophils # (Manual) 0.0 K/mm3 (0.0-0.4) 03/30/18 07:07 Basophils # (Manual) 0.0 K/mm3 (0.0-0.1) 03/30/18 07:07 Metamyelocytes # 0.0 K/mm3 03/30/18 07:07 Myelocytes # 0.0 K/mm3 03/30/18 07:07 Promyelocytes # 0.0 K/mm3 03/30/18 07:07 Blast Cells # 0.0 K/mm3 03/30/18 07:07 WBC Morphology Not Reportable 03/30/18 07:07 Hypersegmented Neuts Not Reportable 03/30/18 07:07 Hyposegmented Neuts Not Reportable 03/30/18 07:07 Hypogranular Neuts Not Reportable 03/30/18 07:07 Smudge Cells Not Reportable 03/30/18 07:07 Toxic Granulation Not Reportable 03/30/18 07:07 Toxic Vacuolation Not Reportable 03/30/18 07:07 Dohle Bodies Not Reportable 03/30/18 07:07 Pelger-Huet Anomaly Not Reportable 03/30/18 07:07 Toni Rods Not Reportable 03/30/18 07:07 Platelet Estimate Appears normal 03/30/18 07:07 Clumped Platelets Not Reportable 03/30/18 07:07 Plt Clumps, EDTA Not Reportable 03/30/18 07:07 Large Platelets Not Reportable 03/30/18 07:07 Giant Platelets Not Reportable 03/30/18 07:07 Platelet Satelliting Not Reportable 03/30/18 07:07 Plt Morphology Comment Not Reportable 03/30/18 07:07 RBC Morphology Not Reportable 03/30/18 07:07 Dimorphic RBCs Not Reportable 03/30/18 07:07 Polychromasia Not Reportable 03/30/18 07:07 Hypochromasia Not Reportable 03/30/18 07:07 Poikilocytosis Few 03/30/18 07:07 Anisocytosis 1+ 03/30/18 07:07 Microcytosis Rare 03/30/18 07:07 Macrocytosis Not Reportable 03/30/18 07:07 Spherocytes Not Reportable 03/30/18 07:07 Pappenheimer Bodies Not Reportable 03/30/18 07:07 Sickle Cells Not Reportable 03/30/18 07:07 Target Cells Not Reportable 03/30/18 07:07 Tear Drop Cells Not Reportable 03/30/18 07:07 Ovalocytes Not Reportable 03/30/18 07:07 Helmet Cells Not Reportable 03/30/18 07:07 Angela[place] Bodies Not Reportable 03/30/18 07:07 [place] Rings Not Reportable 03/30/18 07:07 [place] Cells Not Reportable 03/30/18 07:07 Bite Cells Not Reportable 03/30/18 07:07 Crenated Cell Not Reportable 03/30/18 07:07 Elliptocytes Not Reportable 03/30/18 07:07 Acanthocytes (Spur) Not Reportable 03/30/18 07:07 Rouleaux Not Reportable 03/30/18 07:07 Hemoglobin C Crystals Not Reportable 03/30/18 07:07 Schistocytes Rare 03/30/18 07:07 Malaria parasites Not Reportable 03/30/18 07:07 Ihsan Bodies Not Reportable 03/30/18 07:07 Hem Pathologist Commnt No 03/30/18 07:07 POC ABG pH 7.403 (7.35-7.45) 03/27/18 06:14 POC ABG pCO2 38.9 (35-45) 03/27/18 06:14 POC ABG pO2 84 (80-105) 03/27/18 06:14 POC ABG HCO3 24.3 03/27/18 06:14 POC ABG Total CO2 25 03/27/18 06:14 POC ABG O2 Sat 96 03/27/18 06:14 POC ABG Base Excess 0 03/27/18 06:14 FiO2 30 % 03/27/18 06:14 Sodium 140 mmol/L (137-145) 03/30/18 07:07 Potassium 5.2 mmol/L (3.6-5.0) H D 03/30/18 07:07 Chloride 102.5 mmol/L (98-107) 03/30/18 07:07 Carbon Dioxide 23 mmol/L (22-30) 03/30/18 07:07 Anion Gap 20 mmol/L 03/30/18 07:07 BUN 25 mg/dL (7-17) H 03/30/18 07:07 Creatinine 1.4 mg/dL (0.7-1.2) H 03/30/18 07:07 Estimated GFR 46 ml/min 03/30/18 07:07 BUN/Creatinine Ratio 18 % 03/30/18 07:07 Glucose 203 mg/dL (65-100) H 03/30/18 07:07 Calcium 9.0 mg/dL (8.4-10.2) 03/30/18 07:07 Total Creatine Kinase 63 units/L (30-135) 03/27/18 12:20 CK-MB (CK-2) 1.6 ng/mL (0.0-4.0) 03/27/18 12:20 CK-MB (CK-2) Rel Index 2.5 (0-4) 03/27/18 12:20 Troponin T < 0.010 ng/mL (0.00-0.029) 03/27/18 12:20 NT-Pro-B Natriuret Pep 97.77 pg/mL (0-900) 03/27/18 03:04
[2018-03-30] MEDS: SODIUM CHLORIDE FLUSH SYRINGE 10 ML IV SCH ×2 (21:01→21:53)
[2018-03-30] MEDS ORDERED: SOLU-Medrol IV SCH (22:00)
--- NOTE | 2018-03-30 22:00 | Treadmill Report ---
INDICATION: Chest pain. ORDERING PHYSICIAN: Octavia Martins MD FINDINGS: There is no scintigraphic evidence of myocardial ischemia. The left ventricle is normal in size and systolic function. The left ventricular ejection fraction is measured at 62%. Normal wall motion and wall thickening is noted on gated imaging. CONCLUSION: Normal perfusion scan. JOB# [id number] AKNancy/NTS
[2018-03-31] MEDS: DUONEB *Not for PRN Use IH SCH ×4 (02:25→22:28)
[2018-03-31 05:51] LABS: Hematocrit 36.1 % (30.3-42.9); Hemoglobin 11.8 gm/dl (10.1-14.3); Mean Corpuscular HGB Conc 33 % (30-34); Mean Corpuscular Hemoglobin 26 pg (28-32); Mean Corpuscular Volume 80 fl (79-97); Platelet Count 268 K/mm3 (140-440); Red Blood Count 4.51 M/mm3 (3.65-5.03); Red Cell Distribution Width 15.1 % (13.2-15.2)
[2018-03-31 06:12] LABS: Calcium 8.6 mg/dL (8.4-10.2)
[2018-03-31] MEDS: TYLENOL PO PRN (06:28)
[2018-03-31] MEDS: TESSALON PERLES PO PRN ×2 (06:28→21:29)
[2018-03-31 07:17] LABS: Band Neutrophils # (Manual) 0.5 K/mm3; Basophils % (Manual) 0 % (0.0-1.8); Total Cells Counted 100
[2018-03-31 07:18] LABS: Anisocytosis 1+; Eosinophils % (Manual) 0 % (0.0-4.3); Hypochromasia 1+; Poikilocytosis Few
[2018-03-31] MEDS: LOVENOX SUB-Q SCH (10:24)
[2018-03-31] MEDS: PROTONIX PO SCH (10:25)
[2018-03-31] MEDS: COZAAR PO SCH (10:25)
[2018-03-31] MEDS: SOLU-Medrol IV SCH ×2 (10:25→21:30)
[2018-03-31] MEDS: NAPROSYN PO SCH ×2 (10:26→21:29)
[2018-03-31] MEDS: MAXZIDE-25 PO SCH (10:26)
[2018-03-31] MEDS: BABY ASPIRIN PO SCH (10:26)
[2018-03-31] MEDS: SODIUM CHLORIDE FLUSH SYRINGE 10 ML IV SCH ×2 (10:27→21:48)
[2018-03-31] MEDS: LEVAQUIN 500MG/100ML 500 MG/100 ML BAG IV SCH (10:27)
--- NOTE | 2018-03-31 11:54 | Progress Note ---
Assessment and Plan Assessment and plan: Chest pain. Lexiscan is negative for ischemia and echocardiogram essentially unremarkable. Etiology likely secondary to GERD. Sepsis. Improved. Continue IV antibiotics and follow-up blood, sputum cultures and lactate levels. Acute bronchitis. Continue IV antibiotics. Persistent Leukocytosis. Etiology likely secondary to steroids. Acute hypoxemic respiratory failure. Continue O2 support care. BiPAP as needed. Acute asthma exacerbation. Continue IV steroids and taper as tolerated, nebulizer treatments and IV Levaquin. GERD. Continue Protonix daily. History Interval history: No new issues overnight. Hospitalist Physical - Constitutional Vitals: Temp Pulse Resp BP Pulse Ox 97.6 F 96 H 24 136/52 96 03/31/18 08:36 03/31/18 09:06 03/31/18 09:21 03/31/18 08:36 03/31/18 09:21 General appearance: Present: no acute distress, well-nourished - EENT Eyes: Present: PERRL, EOM intact ENT: hearing intact, clear oral mucosa, dentition normal - Neck Neck: Present: supple, normal ROM - Respiratory Respiratory effort: normal Respiratory: bilateral: CTA - Cardiovascular Rhythm: regular Heart Sounds: Present: S1 & S2. Absent: gallop, rub - Extremities Extremities: no ischemia, No edema, Full ROM - Abdominal General gastrointestinal: soft, non-tender, non-distended, normal bowel sounds - Integumentary Integumentary: Present: clear, warm, dry - Neurologic Neurologic: CNII-XII intact, moves all extremities Results - Labs CBC & Chem 7: 03/31/18 05:15 03/31/18 05:15 Labs: Laboratory Last Values WBC 15.4 K/mm3 (4.5-11.0) H 03/31/18 05:15 RBC 4.51 M/mm3 (3.65-5.03) 03/31/18 05:15 Hgb 11.8 gm/dl (10.1-14.3) 03/31/18 05:15 Hct 36.1 % (30.3-42.9) 03/31/18 05:15 MCV 80 fl (79-97) 03/31/18 05:15 MCH 26 pg (28-32) L 03/31/18 05:15 MCHC 33 % (30-34) 03/31/18 05:15 RDW 15.1 % (13.2-15.2) 03/31/18 05:15 Plt Count 268 K/mm3 (140-440) 03/31/18 05:15 Lymph % (Auto) 6.9 % (13.4-35.0) L 03/27/18 03:04 [place] % (Auto) 6.9 % (0.0-7.3) 03/27/18 03:04 Eos % (Auto) 1.9 % (0.0-4.3) 03/27/18 03:04 Baso % (Auto) 0.4 % (0.0-1.8) 03/27/18 03:04 Lymph # 0.8 K/mm3 (1.2-5.4) L 03/27/18 03:04 [place] # 0.8 K/mm3 (0.0-0.8) 03/27/18 03:04 Eos # 0.2 K/mm3 (0.0-0.4) 03/27/18 03:04 Baso # 0.0 K/mm3 (0.0-0.1) 03/27/18 03:04 Add Manual Diff Complete 03/31/18 05:15 Total Counted 100 03/31/18 05:15 Seg Neutrophils % Food Sampler 03/30/18 07:07 Seg Neuts % (Manual) 93.0 % (40.0-70.0) H 03/31/18 05:15 Band Neutrophils % 3.0 % 03/31/18 05:15 Lymphocytes % (Manual) 3.0 % (13.4-35.0) L 03/31/18 05:15 Reactive Lymphs % (Man) 0 % 03/31/18 05:15 Monocytes % (Manual) 1.0 % (0.0-7.3) 03/31/18 05:15 Eosinophils % (Manual) 0 % (0.0-4.3) 03/31/18 05:15 Basophils % (Manual) 0 % (0.0-1.8) 03/31/18 05:15 Metamyelocytes % 0 % 03/31/18 05:15 Myelocytes % 0 % 03/31/18 05:15 Promyelocytes % 0 % 03/31/18 05:15 Blast Cells % 0 % 03/31/18 05:15 Nucleated RBC % Not Reportable 03/31/18 05:15 Seg Neutrophils # 10.1 K/mm3 (1.8-7.7) H 03/27/18 03:04 Seg Neutrophils # Man 14.3 K/mm3 (1.8-7.7) H 03/31/18 05:15 Band Neutrophils # 0.5 K/mm3 03/31/18 05:15 Lymphocytes # (Manual) 0.5 K/mm3 (1.2-5.4) L 03/31/18 05:15 Abs React Lymphs (Man) 0.0 K/mm3 03/31/18 05:15 Monocytes # (Manual) 0.2 K/mm3 (0.0-0.8) 03/31/18 05:15 Eosinophils # (Manual) 0.0 K/mm3 (0.0-0.4) 03/31/18 05:15 Basophils # (Manual) 0.0 K/mm3 (0.0-0.1) 03/31/18 05:15 Metamyelocytes # 0.0 K/mm3 03/31/18 05:15 Myelocytes # 0.0 K/mm3 03/31/18 05:15 Promyelocytes # 0.0 K/mm3 03/31/18 05:15 Blast Cells # 0.0 K/mm3 03/31/18 05:15 WBC Morphology Not Reportable 03/31/18 05:15 Hypersegmented Neuts Not Reportable 03/31/18 05:15 Hyposegmented Neuts Not Reportable 03/31/18 05:15 Hypogranular Neuts Not Reportable 03/31/18 05:15 Smudge Cells Not Reportable 03/31/18 05:15 Toxic Granulation Not Reportable 03/31/18 05:15 Toxic Vacuolation Not Reportable 03/31/18 05:15 Dohle Bodies Not Reportable 03/31/18 05:15 Pelger-Huet Anomaly Not Reportable 03/31/18 05:15 Toni Rods Not Reportable 03/31/18 05:15 Platelet Estimate Appears normal 03/31/18 05:15 Clumped Platelets Not Reportable 03/31/18 05:15 Plt Clumps, EDTA Not Reportable 03/31/18 05:15 Large Platelets Not Reportable 03/31/18 05:15 Giant Platelets Not Reportable 03/31/18 05:15 Platelet Satelliting Not Reportable 03/31/18 05:15 Plt Morphology Comment Not Reportable 03/31/18 05:15 RBC Morphology Not Reportable 03/31/18 05:15 Dimorphic RBCs Not Reportable 03/31/18 05:15 Polychromasia Not Reportable 03/31/18 05:15 Hypochromasia 1+ 03/31/18 05:15 Poikilocytosis Few 03/31/18 05:15 Anisocytosis 1+ 03/31/18 05:15 Microcytosis Not Reportable 03/31/18 05:15 Macrocytosis Not Reportable 03/31/18 05:15 Spherocytes Not Reportable 03/31/18 05:15 Pappenheimer Bodies Not Reportable 03/31/18 05:15 Sickle Cells Not Reportable 03/31/18 05:15 Target Cells Not Reportable 03/31/18 05:15 Tear Drop Cells Not Reportable 03/31/18 05:15 Ovalocytes Not Reportable 03/31/18 05:15 Helmet Cells Not Reportable 03/31/18 05:15 [place] Bodies Not Reportable 03/31/18 05:15 [place] Rings Not Reportable 03/31/18 05:15 [place] Cells Not Reportable 03/31/18 05:15 Bite Cells Not Reportable 03/31/18 05:15 Crenated Cell Not Reportable 03/31/18 05:15 Elliptocytes Not Reportable 03/31/18 05:15 Acanthocytes (Spur) Not Reportable 03/31/18 05:15 Rouleaux Not Reportable 03/31/18 05:15 Hemoglobin C Crystals Not Reportable 03/31/18 05:15 Schistocytes Not Reportable 03/31/18 05:15 Malaria parasites Not Reportable 03/31/18 05:15 Ihsan Bodies Not Reportable 03/31/18 05:15 Hem Pathologist Commnt No 03/31/18 05:15 POC ABG pH 7.403 (7.35-7.45) 03/27/18 06:14 POC ABG pCO2 38.9 (35-45) 03/27/18 06:14 POC ABG pO2 84 (80-105) 03/27/18 06:14 POC ABG HCO3 24.3 03/27/18 06:14 POC ABG Total CO2 25 03/27/18 06:14 POC ABG O2 Sat 96 03/27/18 06:14 POC ABG Base Excess 0 03/27/18 06:14 FiO2 30 % 03/27/18 06:14 Sodium 139 mmol/L (137-145) 03/31/18 05:15 Potassium 5.1 mmol/L (3.6-5.0) H 03/31/18 05:15 Chloride 101.9 mmol/L (98-107) 03/31/18 05:15 Carbon Dioxide 24 mmol/L (22-30) 03/31/18 05:15 Anion Gap 18 mmol/L 03/31/18 05:15 BUN 28 mg/dL (7-17) H 03/31/18 05:15 Creatinine 1.4 mg/dL (0.7-1.2) H 03/31/18 05:15 Estimated GFR 46 ml/min 03/31/18 05:15 BUN/Creatinine Ratio 20 % 03/31/18 05:15 Glucose 221 mg/dL (65-100) H 03/31/18 05:15 Calcium 8.6 mg/dL (8.4-10.2) 03/31/18 05:15 Total Creatine Kinase 63 units/L (30-135) 03/27/18 12:20 CK-MB (CK-2) 1.6 ng/mL (0.0-4.0) 03/27/18 12:20 CK-MB (CK-2) Rel Index 2.5 (0-4) 03/27/18 12:20 Troponin T < 0.010 ng/mL (0.00-0.029) 03/27/18 12:20 NT-Pro-B Natriuret Pep 97.77 pg/mL (0-900) 03/27/18 03:04
[2018-04-01] MEDS: DUONEB *Not for PRN Use IH SCH ×4 (04:06→20:19)
[2018-04-01] MEDS ORDERED: LEVAQUIN PO SCH (10:00)
[2018-04-01] MEDS: LOVENOX SUB-Q SCH (10:19)
[2018-04-01] MEDS: SOLU-Medrol IV SCH ×2 (10:19→21:35)
[2018-04-01] MEDS: BABY ASPIRIN PO SCH (10:20)
[2018-04-01] MEDS: PROTONIX PO SCH (10:20)
[2018-04-01] MEDS: NAPROSYN PO SCH ×2 (10:20→21:35)
[2018-04-01] MEDS: LEVAQUIN PO SCH (10:20)
[2018-04-01] MEDS: MAXZIDE-25 PO SCH (10:21)
[2018-04-01] MEDS: SODIUM CHLORIDE FLUSH SYRINGE 10 ML IV SCH ×2 (10:26→21:36)
[2018-04-01 10:47] LABS: Hematocrit 39.4 % (30.3-42.9); Hemoglobin 12.6 gm/dl (10.1-14.3); Mean Corpuscular HGB Conc 32 % (30-34); Mean Corpuscular Volume 80 fl (79-97); Platelet Count 298 K/mm3 (140-440); Red Blood Count 4.92 M/mm3 (3.65-5.03)
[2018-04-01 10:48] LABS: Mean Corpuscular Hemoglobin 26 pg (28-32)
[2018-04-01 11:03] LABS: BUN/Creatinine Ratio 20; Blood Urea Nitrogen 22 mg/dL (7-17); Calcium 8.8 mg/dL (8.4-10.2); Hemolysis Index 18
[2018-04-01 12:12] LABS: Anisocytosis 1+; Band Neutrophils # (Manual) 0.2 K/mm3; Basophils % (Manual) 0 % (0.0-1.8); Eosinophils % (Manual) 0 % (0.0-4.3); Hypochromasia 1+; Platelet Estimate Consistent w Auto; Total Cells Counted 100
[2018-04-01] MEDS: COZAAR PO SCH (15:05)
[2018-04-01] MEDS: TESSALON PERLES PO PRN (21:35)
[2018-04-02] MEDS: DUONEB *Not for PRN Use IH SCH ×4 (02:25→20:38)
[2018-04-02] MEDS: TESSALON PERLES PO PRN ×2 (11:30→21:57)
[2018-04-02] MEDS: LOVENOX SUB-Q SCH (11:30)
[2018-04-02] MEDS: PROTONIX PO SCH (11:30)
[2018-04-02] MEDS: LEVAQUIN PO SCH (11:30)
[2018-04-02] MEDS: COZAAR PO SCH (11:30)
[2018-04-02] MEDS: SOLU-Medrol IV SCH ×2 (11:31→21:56)
[2018-04-02] MEDS: MAXZIDE-25 PO SCH (11:31)
[2018-04-02] MEDS: NAPROSYN PO SCH ×2 (11:31→21:56)
[2018-04-02] MEDS: BABY ASPIRIN PO SCH (11:31)
[2018-04-02] MEDS: SODIUM CHLORIDE FLUSH SYRINGE 10 ML IV SCH ×2 (11:32→21:57)
--- NOTE | 2018-04-02 11:48 | Progress Note ---
Assessment and Plan Assessment and plan: Chest pain. Lexiscan is negative for ischemia and echocardiogram essentially unremarkable. Etiology likely secondary to GERD. Sepsis. Improved. Continue IV antibiotics and follow-up blood, sputum cultures and lactate levels. Acute bronchitis. Continue IV antibiotics. Persistent Leukocytosis. Etiology likely secondary to steroids. Acute hypoxemic respiratory failure. Continue O2 support care. BiPAP as needed. Acute asthma exacerbation. Continue IV steroids and taper as tolerated, nebulizer treatments and IV Levaquin. GERD. Continue Protonix daily. Disposition. Anticipate discharge in a.m. History Interval history: No new issues overnight. Patient still with shortness of breath with exertion. Hospitalist Physical - Constitutional Vitals: Temp Pulse Resp BP Pulse Ox 97.9 F 82 20 121/68 95 04/02/18 11:13 04/02/18 11:30 04/02/18 11:31 04/02/18 11:30 04/02/18 11:13 General appearance: Present: no acute distress, well-nourished - EENT Eyes: Present: PERRL, EOM intact ENT: hearing intact, clear oral mucosa, dentition normal - Neck Neck: Present: supple, normal ROM - Respiratory Respiratory effort: normal Respiratory: bilateral: CTA - Cardiovascular Rhythm: regular Heart Sounds: Present: S1 & S2. Absent: gallop, rub - Extremities Extremities: no ischemia, No edema, Full ROM - Abdominal General gastrointestinal: soft, non-tender, non-distended, normal bowel sounds - Integumentary Integumentary: Present: clear, warm, dry - Neurologic Neurologic: CNII-XII intact, moves all extremities Results - Labs CBC & Chem 7: 04/01/18 08:46 04/01/18 08:46 Labs: Laboratory Last Values WBC 15.1 K/mm3 (4.5-11.0) H 04/01/18 08:46 RBC 4.92 M/mm3 (3.65-5.03) 04/01/18 08:46 Hgb 12.6 gm/dl (10.1-14.3) 04/01/18 08:46 Hct 39.4 % (30.3-42.9) 04/01/18 08:46 MCV 80 fl (79-97) 04/01/18 08:46 MCH 26 pg (28-32) L 04/01/18 08:46 MCHC 32 % (30-34) 04/01/18 08:46 RDW 15.0 % (13.2-15.2) 04/01/18 08:46 Plt Count 298 K/mm3 (140-440) 04/01/18 08:46 Lymph % (Auto) 6.9 % (13.4-35.0) L 03/27/18 03:04 [place] % (Auto) 6.9 % (0.0-7.3) 03/27/18 03:04 Eos % (Auto) 1.9 % (0.0-4.3) 03/27/18 03:04 Baso % (Auto) 0.4 % (0.0-1.8) 03/27/18 03:04 Lymph # 0.8 K/mm3 (1.2-5.4) L 03/27/18 03:04 [place] # 0.8 K/mm3 (0.0-0.8) 03/27/18 03:04 Eos # 0.2 K/mm3 (0.0-0.4) 03/27/18 03:04 Baso # 0.0 K/mm3 (0.0-0.1) 03/27/18 03:04 Add Manual Diff Complete 04/01/18 08:46 Total Counted 100 04/01/18 08:46 Seg Neutrophils % [employer] 04/01/18 08:46 Seg Neuts % (Manual) 90.0 % (40.0-70.0) H 04/01/18 08:46 Band Neutrophils % 1.0 % 04/01/18 08:46 Lymphocytes % (Manual) 5.0 % (13.4-35.0) L 04/01/18 08:46 Reactive Lymphs % (Man) 0 % 04/01/18 08:46 Monocytes % (Manual) 3.0 % (0.0-7.3) 04/01/18 08:46 Eosinophils % (Manual) 0 % (0.0-4.3) 04/01/18 08:46 Basophils % (Manual) 0 % (0.0-1.8) 04/01/18 08:46 Metamyelocytes % 1.0 % 04/01/18 08:46 Myelocytes % 0 % 04/01/18 08:46 Promyelocytes % 0 % 04/01/18 08:46 Blast Cells % 0 % 04/01/18 08:46 Nucleated RBC % Not Reportable 04/01/18 08:46 Seg Neutrophils # 10.1 K/mm3 (1.8-7.7) H 03/27/18 03:04 Seg Neutrophils # Man 13.6 K/mm3 (1.8-7.7) H 04/01/18 08:46 Band Neutrophils # 0.2 K/mm3 04/01/18 08:46 Lymphocytes # (Manual) 0.8 K/mm3 (1.2-5.4) L 04/01/18 08:46 Abs React Lymphs (Man) 0.0 K/mm3 04/01/18 08:46 Monocytes # (Manual) 0.5 K/mm3 (0.0-0.8) 04/01/18 08:46 Eosinophils # (Manual) 0.0 K/mm3 (0.0-0.4) 04/01/18 08:46 Basophils # (Manual) 0.0 K/mm3 (0.0-0.1) 04/01/18 08:46 Metamyelocytes # 0.2 K/mm3 04/01/18 08:46 Myelocytes # 0.0 K/mm3 04/01/18 08:46 Promyelocytes # 0.0 K/mm3 04/01/18 08:46 Blast Cells # 0.0 K/mm3 04/01/18 08:46 WBC Morphology Not Reportable 04/01/18 08:46 Hypersegmented Neuts Not Reportable 04/01/18 08:46 Hyposegmented Neuts Not Reportable 04/01/18 08:46 Hypogranular Neuts Not Reportable 04/01/18 08:46 Smudge Cells Not Reportable 04/01/18 08:46 Toxic Granulation Not Reportable 04/01/18 08:46 Toxic Vacuolation Not Reportable 04/01/18 08:46 Dohle Bodies Not Reportable 04/01/18 08:46 Pelger-Huet Anomaly Not Reportable 04/01/18 08:46 Toni Rods Not Reportable 04/01/18 08:46 Platelet Estimate Consistent w auto 04/01/18 08:46 Clumped Platelets Not Reportable 04/01/18 08:46 Plt Clumps, EDTA Not Reportable 04/01/18 08:46 Large Platelets Not Reportable 04/01/18 08:46 Giant Platelets Not Reportable 04/01/18 08:46 Platelet Satelliting Not Reportable 04/01/18 08:46 Plt Morphology Comment Not Reportable 04/01/18 08:46 RBC Morphology Not Reportable 04/01/18 08:46 Dimorphic RBCs Not Reportable 04/01/18 08:46 Polychromasia Not Reportable 04/01/18 08:46 Hypochromasia 1+ 04/01/18 08:46 Poikilocytosis Not Reportable 04/01/18 08:46 Anisocytosis 1+ 04/01/18 08:46 Microcytosis Not Reportable 04/01/18 08:46 Macrocytosis Not Reportable 04/01/18 08:46 Spherocytes Not Reportable 04/01/18 08:46 Pappenheimer Bodies Not Reportable 04/01/18 08:46 Sickle Cells Not Reportable 04/01/18 08:46 Target Cells Not Reportable 04/01/18 08:46 Tear Drop Cells Not Reportable 04/01/18 08:46 Ovalocytes Not Reportable 04/01/18 08:46 Helmet Cells Not Reportable 04/01/18 08:46 [place] Bodies Not Reportable 04/01/18 08:46 [place] Rings Not Reportable 04/01/18 08:46 [place] Cells Not Reportable 04/01/18 08:46 Bite Cells Not Reportable 04/01/18 08:46 Crenated Cell Not Reportable 04/01/18 08:46 Elliptocytes Not Reportable 04/01/18 08:46 Acanthocytes (Spur) Not Reportable 04/01/18 08:46 Rouleaux Not Reportable 04/01/18 08:46 Hemoglobin C Crystals Not Reportable 04/01/18 08:46 Schistocytes Not Reportable 04/01/18 08:46 Malaria parasites Not Reportable 04/01/18 08:46 [place] Bodies Not Reportable 04/01/18 08:46 Hem Pathologist Commnt No 04/01/18 08:46 POC ABG pH 7.403 (7.35-7.45) 03/27/18 06:14 POC ABG pCO2 38.9 (35-45) 03/27/18 06:14 POC ABG pO2 84 (80-105) 03/27/18 06:14 POC ABG HCO3 24.3 03/27/18 06:14 POC ABG Total CO2 25 03/27/18 06:14 POC ABG O2 Sat 96 03/27/18 06:14 POC ABG Base Excess 0 03/27/18 06:14 FiO2 30 % 03/27/18 06:14 Sodium 140 mmol/L (137-145) 04/01/18 08:46 Potassium 4.2 mmol/L (3.6-5.0) 04/01/18 08:46 Chloride 98.9 mmol/L (98-107) 04/01/18 08:46 Carbon Dioxide 26 mmol/L (22-30) 04/01/18 08:46 Anion Gap 19 mmol/L 04/01/18 08:46 BUN 22 mg/dL (7-17) H 04/01/18 08:46 Creatinine 1.1 mg/dL (0.7-1.2) 04/01/18 08:46 Estimated GFR > 60 ml/min 04/01/18 08:46 BUN/Creatinine Ratio 20 % 04/01/18 08:46 Glucose 160 mg/dL (65-100) H 04/01/18 08:46 Calcium 8.8 mg/dL (8.4-10.2) 04/01/18 08:46 Total Creatine Kinase 63 units/L (30-135) 03/27/18 12:20 CK-MB (CK-2) 1.6 ng/mL (0.0-4.0) 03/27/18 12:20 CK-MB (CK-2) Rel Index 2.5 (0-4) 03/27/18 12:20 Troponin T < 0.010 ng/mL (0.00-0.029) 03/27/18 12:20 NT-Pro-B Natriuret Pep 97.77 pg/mL (0-900) 03/27/18 03:04
[2018-04-02] MEDS ORDERED: PROVENTIL IH PRN (21:49)
[2018-04-03] MEDS: PROTONIX PO SCH (09:06)
[2018-04-03] MEDS: LEVAQUIN PO SCH (09:07)
[2018-04-03] MEDS: BABY ASPIRIN PO SCH (09:07)
[2018-04-03] MEDS: TESSALON PERLES PO PRN ×2 (09:07→21:59)
[2018-04-03] MEDS: LOVENOX SUB-Q SCH (09:07)
[2018-04-03] MEDS: SOLU-Medrol IV SCH ×2 (09:07→21:59)
[2018-04-03] MEDS: COZAAR PO SCH (09:07)
[2018-04-03] MEDS: SODIUM CHLORIDE FLUSH SYRINGE 10 ML IV SCH ×2 (09:08→22:00)
[2018-04-03] MEDS: MAXZIDE-25 PO SCH (09:17)
[2018-04-03] MEDS: NAPROSYN PO SCH ×2 (09:17→21:58)
[2018-04-03] MEDS: DUONEB *Not for PRN Use IH SCH ×3 (09:20→22:14)
--- NOTE | 2018-04-03 15:25 | Progress Note ---
Assessment and Plan Assessment and plan: Chest pain. Lexiscan is negative for ischemia and echocardiogram essentially unremarkable. Etiology likely secondary to GERD. Sepsis. Improved. Continue IV antibiotics and follow-up blood, sputum cultures and lactate levels. Acute bronchitis. Continue IV antibiotics. Persistent Leukocytosis. Etiology likely secondary to steroids.Sterids Acute hypoxemic respiratory failure. Continue O2 support care. BiPAP as needed. EF 65 percent.No Thrombus. Acute asthma exacerbation. Continue IV steroids and taper as tolerated, nebulizer treatments and IV Levaquin. GERD. Continue Protonix daily. Disposition. Tried discharging today.Patient reluctant to go home b/c she is getting new carpet today.Wants to go home tomorrow. Morbid Obesity----needs to Loose weight Subjective Date of service: 04/03/18 Principal diagnosis: Resp failure Interval history: Sx better Feels tired Objective - Constitutional Vitals: Vital Signs - 12hr 04/03/18 04/03/18 04/03/18 04:35 05:34 08:12 Temperature 98.3 F 98.5 F Pulse Rate 77 87 71 Pulse Rate [ Anterior Bilateral Throughout] Pulse Rate [ Apical] Pulse Rate [ Posterior Bilateral Throughout] Pulse Rate [ Throughout] Respiratory 18 20 Rate Respiratory Rate [Anterior Bilateral Throughout] Respiratory Rate [Posterior Bilateral Throughout] Respiratory Rate [ Throughout] Blood Pressure 139/51 125/68 O2 Sat by Pulse 96 96 Oximetry 04/03/18 04/03/18 04/03/18 09:07 09:17 09:22 Temperature Pulse Rate 74 Pulse Rate [ 79 Anterior Bilateral Throughout] Pulse Rate [ Apical] Pulse Rate [ Posterior Bilateral Throughout] Pulse Rate [ 80 Throughout] Respiratory 19 Rate Respiratory 18 Rate [Anterior Bilateral Throughout] Respiratory Rate [Posterior Bilateral Throughout] Respiratory 18 Rate [ Throughout] Blood Pressure 138/74 O2 Sat by Pulse Oximetry 04/03/18 04/03/18 04/03/18 09:23 09:24 11:10 Temperature 98.4 F Pulse Rate 82 Pulse Rate [ Anterior Bilateral Throughout] Pulse Rate [ 74 Apical] Pulse Rate [ Posterior Bilateral Throughout] Pulse Rate [ Throughout] Respiratory 19 20 Rate Respiratory Rate [Anterior Bilateral Throughout] Respiratory Rate [Posterior Bilateral Throughout] Respiratory Rate [ Throughout] Blood Pressure 118/56 O2 Sat by Pulse 99 93 Oximetry 04/03/18 04/03/18 11:18 13:34 Temperature Pulse Rate 99 H Pulse Rate [ Anterior Bilateral Throughout] Pulse Rate [ Apical] Pulse Rate [ 99 H Posterior Bilateral Throughout] Pulse Rate [ 103 H Throughout] Respiratory Rate Respiratory Rate [Anterior Bilateral Throughout] Respiratory 20 Rate [Posterior Bilateral Throughout] Respiratory 18 Rate [ Throughout] Blood Pressure O2 Sat by Pulse Oximetry General appearance: Present: no acute distress, well-nourished - EENT Eyes: PERRL, EOM intact ENT: hearing intact, clear oral mucosa Ears: bilateral: normal - Neck Neck: supple, normal ROM - Respiratory Respiratory effort: normal Respiratory: bilateral: CTA - Breasts Breasts: normal - Cardiovascular Heart rate: 78 Rhythm: regular Heart Sounds: Present: S1 & S2. Absent: gallop, rub Extremities: no ischemia, pulses intact, No edema, normal color, Full ROM - Gastrointestinal General gastrointestinal: Present: soft, non-tender, non-distended, normal bowel sounds Rectal Exam: deferred - Genitourinary Female genitourinary: normal - Integumentary Integumentary: clear, warm, dry - Musculoskeletal Musculoskeletal: 1, strength equal bilaterally - Neurologic Neurologic: moves all extremities - Psychiatric Psychiatric: memory intact, appropriate mood/affect, intact judgment & insight - Labs CBC & Chem 7: 04/01/18 08:46 04/01/18 08:46
[2018-04-04] MEDS: DUONEB *Not for PRN Use IH SCH ×2 (08:58→15:12)
[2018-04-04] MEDS: BABY ASPIRIN PO SCH (09:54)
[2018-04-04] MEDS: PROTONIX PO SCH (09:54)
[2018-04-04] MEDS: MAXZIDE-25 PO SCH (09:54)
[2018-04-04] MEDS: LEVAQUIN PO SCH (09:54)
[2018-04-04] MEDS: LOVENOX SUB-Q SCH (09:54)
[2018-04-04] MEDS: COZAAR PO SCH (09:54)
[2018-04-04] MEDS: SODIUM CHLORIDE FLUSH SYRINGE 10 ML IV SCH (09:55)
[2018-04-04] MEDS: SOLU-Medrol IV SCH (09:55)
[2018-04-04] MEDS: NAPROSYN PO SCH (10:09)
--- NOTE | 2018-04-04 10:44 | Discharge Summary ---
Providers - Providers Date of Admission: 03/27/18 07:35 Date of discharge: 04/04/18 Attending physician: GERBER GARCIA 03/29/18 Consult to Cardiac Rehabilitation [CONS] Routine Reason For Exam: Phase I Primary care physician: OLGA BECK Hospitalization Condition: Fair Disposition: DC-01 TO HOME OR SELFCARE Core Measure Documentation - Palliative Care Palliative Care/ Comfort Measures: Not Applicable - Core Measures Any of the following diagnoses?: none Exam - Constitutional Vitals: Temp Pulse Resp BP Pulse Ox 98.0 F 104 H 97 H 108/67 96 04/04/18 09:56 04/04/18 09:56 04/04/18 09:56 04/04/18 09:56 04/04/18 09:56 Plan Activity: advance as tolerated Diet: low fat, low cholesterol, low salt Additional Instructions: 1.Follow up with Dr. Beck in 3-5 days Follow up with: LOGA BECK JR, MD [Primary Care Provider] - 3-5 Days Prescriptions: Benzonatate [Tessalon Perles] 100 mg PO Q6HR PRN #20 capsule PRN Reason: Cough Prednisone [predniSONE 5 mg (6-Day Pack, 21 Tabs)] 5 mg PO .TAPER #1 tab.ds.pk
[2018-04-04 13:15] VITALS: BP 100/50
== END 2018-04-04 16:00 | disposition home or self-care (01) | DRG 871 ==
LOC: ED 02:31 → 4A 07:35
PROVIDERS: ADMIT Internal Medicine; ATTEND Internal Medicine
PROC: 4A033R1 Measurement of Arterial Saturation, Peripheral, Percutaneous Approach (ICD-10-PCS; principal; 2018-03-27)
PROC: 5A09357 Assistance with Respiratory Ventilation, Less than 24 Consecutive Hours, Continuous Positive Airway Pressure (ICD-10-PCS; 2018-03-27)
DX: A41.9 Sepsis, unspecified organism (principal); J96.01 Acute respiratory failure with hypoxia; J45.902 Unspecified asthma with status asthmaticus; Z68.42 Body mass index [BMI] 45.0-49.9, adult; J20.9 Acute bronchitis, unspecified; I10 Essential (primary) hypertension; M19.90 Unspecified osteoarthritis, unspecified site; Z90.710 Acquired absence of both cervix and uterus; Z79.899 Other long term (current) drug therapy; Z88.0 Allergy status to penicillin; Z88.8 Allergy status to other drugs, medicaments and biological substances; Z82.49 Family history of ischemic heart disease and other diseases of the circulatory system; K21.9 Gastro-esophageal reflux disease without esophagitis; E66.01 Morbid (severe) obesity due to excess calories; Z71.3 Dietary counseling and surveillance
CPT/HCPCS: 36415; 71045; 71275; 78452; 80048; 82550; 82553; 82803; 83880; 84484; 85007; 85025; 87040; 93005; 93010; 93017; 93306; 93308; 93321; 93325; 94640; 94644; 94760; 96365; 96375; A9502; J1650; J1956; J2405; J2785; J2920; J2930; J3475; Q9967

== ENCOUNTER 2018-11-29 12:51 | Emergency (ER) | payer MEDICARE ==
[2018-11-29 13:01] VITALS: BP 164/80
--- NOTE | 2018-11-29 13:02 | Emergency Department Report ---
Blank Doc - Documentation Documentation: 63 y o female presents to Ed cc of Right knee pain s/p fall while coming out an elevator about 30 mins ago no loss of con, no head injury xray knee ACC eval
--- NOTE | 2018-11-29 13:19 | Emergency Department Report ---
ED Fall HPI - General Chief Complaint: Fall Stated Complaint: FALL INJURY Time Seen by Provider: 11/29/18 12:58 Source: patient Mode of arrival: Ambulatory - History of Present Illness Complaint: fall -: minutes(s) (30) Fall From: standing Fall Witnessed: yes, by bystander Place Fall Occurred: work Loss of Consciousness: none Prolonged Down Time?: no Symptoms Prior to Fall: none Location - Extremities: Right: Knee Severity: moderate Severity scale (0 -10): 4 Quality: dull Context: tripped/slipped Associated Symptoms: denies - Related Data Home Medications Medication Instructions Recorded Confirmed Last Taken Losartan Potassium [Cozaar] 100 mg PO DAILY 03/27/18 07/05/18 03/26/18 10:00 Omeprazole 40 mg PO DAILY 03/27/18 07/05/18 03/26/18 10:00 Triamterene/Hydrochlorothiazid 1 each PO DAILY 03/27/18 07/05/18 03/26/18 10:00 [Triamterene-Hctz 37.5-25 mg Cp] Fexofenadine HCl [Jessica Allergy] 180 mg PO DAILY 05/23/18 07/05/18 Unknown Naproxen [Naprosyn] 500 mg PO BID 05/23/18 07/05/18 Unknown Previous Rx's Medication Instructions Recorded Last Taken Type Azithromycin [Zithromax Z-MATTHEW] 250 mg PO DAILY #6 tablet 07/04/18 Unknown Rx Benzonatate [Tessalon Perles] 100 mg PO Q8HR PRN #20 capsule 07/04/18 Unknown Rx Fluticasone [Flonase] 1 spray NS QDAY #1 bottle 07/04/18 Unknown Rx predniSONE [Deltasone] 20 mg PO DAILY #5 tablet 07/04/18 Unknown Rx ALBUTEROL NEB's [Proventil 0.083% 2.5 mg IH Q4HRT PRN #60 nebu 07/12/18 Unknown Rx NEBS] Breo Ellipta 100-25 Mcg INH 100 mcg INHALATION DAILY #60 07/12/18 Unknown Rx Nebulizer [Aeroneb Go Nebulizer] 1 each MC QID #1 each 07/12/18 Unknown Rx predniSONE [Deltasone] 20 mg PO QDAY #5 tab 07/12/18 Unknown Rx Allergies Allergy/AdvReac Type Severity Reaction Status Date / Time carisoprodol [From Soma] Allergy Rash Verified 06/12/13 13:40 Penicillins Allergy Rash Verified 06/12/13 13:40 ED Review of Systems ROS: Stated complaint: FALL INJURY Other details as noted in HPI Comment: All other systems reviewed and negative Constitutional: denies: chills, fever Respiratory: denies: cough, shortness of breath Cardiovascular: denies: chest pain, palpitations Gastrointestinal: denies: abdominal pain, nausea Neurological: denies: headache, numbness, paresthesias, confusion ED Past Medical Hx - Past Medical History Previous Medical History?: Yes Hx Hypertension: Yes (07/10/2011) Hx Congestive Heart Failure: No Hx Diabetes: No Hx Arthritis: Yes (Knees) Hx Asthma: Yes Hx COPD: No - Surgical History Past Surgical History?: Yes Hx Breast Surgery: Yes (reduction) Additional Surgical History: Hysterectomy - Social History Smoking Status: Never Smoker Substance Use Type: None - Medications Home Medications: Home Medications Medication Instructions Recorded Confirmed Last Taken Type Losartan Potassium [Cozaar] 100 mg PO DAILY 03/27/18 07/05/18 03/26/18 10:00 History Omeprazole 40 mg PO DAILY 03/27/18 07/05/18 03/26/18 10:00 History Triamterene/Hydrochlorothiazid 1 each PO DAILY 03/27/18 07/05/18 03/26/18 10:00 History [Triamterene-Hctz 37.5-25 mg Cp] Fexofenadine HCl [Jessica Allergy] 180 mg PO DAILY 05/23/18 07/05/18 Unknown History Naproxen [Naprosyn] 500 mg PO BID 05/23/18 07/05/18 Unknown History Azithromycin [Zithromax Z-MATTHEW] 250 mg PO DAILY #6 tablet 07/04/18 07/05/18 Unknown Rx Benzonatate [Tessalon Perles] 100 mg PO Q8HR PRN #20 capsule 07/04/18 07/05/18 Unknown Rx Fluticasone [Flonase] 1 spray NS QDAY #1 bottle 07/04/18 07/05/18 Unknown Rx predniSONE [Deltasone] 20 mg PO DAILY #5 tablet 07/04/18 07/05/18 Unknown Rx ALBUTEROL NEB's [Proventil 0.083% 2.5 mg IH Q4HRT PRN #60 nebu 07/12/18 Unknown Rx NEBS] Breo Ellipta 100-25 Mcg INH 100 mcg INHALATION DAILY #60 07/12/18 Unknown Rx Nebulizer [Aeroneb Go Nebulizer] 1 each QID #1 each 07/12/18 Unknown Rx predniSONE [Deltasone] 20 mg PO QDAY #5 tab 07/12/18 Unknown Rx ED Physical Exam - General Limitations: No Limitations General appearance: alert, in no apparent distress - Head Head exam: Present: atraumatic, normocephalic, normal inspection - Eye Eye exam: Present: normal appearance, PERRL - ENT ENT exam: Present: normal exam, normal orophraynx, mucous membranes moist - Neck Neck exam: Present: normal inspection, full ROM. Absent: tenderness, meningismus, lymphadenopathy, thyromegaly - Respiratory Respiratory exam: Present: normal lung sounds bilaterally - Cardiovascular Cardiovascular Exam: Present: regular rate - GI/Abdominal GI/Abdominal exam: Present: soft. Absent: distended, tenderness - Expanded Lower Extremity Exam Right Hip exam: Present: full ROM. Absent: tenderness Knee exam: Present: normal inspection, full ROM, tenderness. Absent: swelling, abrasion, laceration ED Course Vital Signs 11/29/18 12:57 Temperature 97.9 F Pulse Rate 78 Respiratory 20 Rate Blood Pressure 164/80 O2 Sat by Pulse 99 Oximetry ED Medical Decision Making - Radiology Data Radiology results: image reviewed interpreted by me: right knee x ray is negative for acute finding. Critical care attestation.: If time is entered above; I have spent that time in minutes in the direct care of this critically ill patient, excluding procedure time. ED Disposition Clinical Impression: Knee contusion Disposition: - TO HOME OR SELFCARE Is pt being admited?: No Condition: Stable Instructions: Contusion in Adults (ED) Referrals: PRIMARY CARE, [Referring] - 3-5 Days
--- NOTE | 2018-11-29 14:18 | XRay Report ---
RIGHT KNEE, 3 views: History: Knee injury. Findings: Minimal tibial spine spurring and retropatellar spurring are identified. The joint space is within normal limits otherwise. No evidence for fracture, bone lesion or large joint effusion. IMPRESSION: Minimal osteoarthritis. No acute injury is appreciated.
== END 2018-11-29 14:26 | disposition home or self-care (01) ==
LOC: ED 12:51
DX: S80.01XA Contusion of right knee, initial encounter (principal); I10 Essential (primary) hypertension; M17.0 Bilateral primary osteoarthritis of knee; J45.909 Unspecified asthma, uncomplicated; Z90.710 Acquired absence of both cervix and uterus; Z98.890 Other specified postprocedural states; Z88.8 Allergy status to other drugs, medicaments and biological substances; Z88.0 Allergy status to penicillin; W01.0XXA Fall on same level from slipping, tripping and stumbling without subsequent striking against object, initial encounter; Y93.89 Activity, other specified; Y92.69 Other specified industrial and construction area as the place of occurrence of the external cause; Y99.8 Other external cause status

== ENCOUNTER 2022-04-08 14:31 | Emergency (ER) | payer MEDICARE ==
--- NOTE | 2022-04-08 17:35 | XRay Report ---
RIGHT HIP 3 VIEW(S) INDICATION / CLINICAL INFORMATION: fall/pain COMPARISON: None available. FINDINGS: BONES / JOINT(S): No acute fracture or subluxation. Mild degenerative arthrosis both hips SOFT TISSUES: No significant abnormality. ADDITIONAL FINDINGS: None. IMPRESSION: 1. No acute findings. Signer Name: Nabil Mireles MD Signed: 04/08/2022 5:31 PM Workstation Name: [id number]
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
[2022-04-08] MEDS ORDERED: ONDANSETRON 4 MG ODT TAB PO ONE (18:48)
[2022-04-08] MEDS ORDERED: HYDROcodone/ACETAMINOPHEN 10-325MG TAB PO ONE (18:48)
[2022-04-08 20:09] VITALS: BP 156/104
== END 2022-04-08 20:08 | disposition home or self-care (01) ==
LOC: ED 14:31
DX: M79.604 Pain in right leg (principal); I10 Essential (primary) hypertension; M19.90 Unspecified osteoarthritis, unspecified site; J45.909 Unspecified asthma, uncomplicated; Z90.710 Acquired absence of both cervix and uterus; Z98.890 Other specified postprocedural states; Z91.040 Latex allergy status; Z88.0 Allergy status to penicillin; Z88.8 Allergy status to other drugs, medicaments and biological substances
CPT/HCPCS: 99283; J3490; Q0162